=== PATIENT | male | born 1965 | race African-American/Black ===

== ENCOUNTER 2018-03-13 16:07 | Inpatient (IN) | payer OTHER, MEDICAID ==
[~2018-03-13] VITALS: Ht 182.9 cm; Wt 174.2 kg
[~2018-03-13 16:07] MED LIST: ACET-3161 PO; BENA10TA3 PO; D-ME473S8 PO; GEMF600T3 PO; HYDR25TA PO; IBUP-2029 PO; LORA10TA7 PO; METF500T4 PO; PROAIR HFA INH; TRIA15OI8 TP
[2018-03-13 16:49] LABS: BASOPHILS % 0.8 % (0.0-2.0); EOSINOPHILS % 2.2 % (0.0-5.0); HEMATOCRIT. 47.7 % (42.0-52.0); HEMOGLOBIN. 15.6 g/dL (14.0-18.0); LYMPHOCYTES % 30.6 % (20.0-50.0); MEAN CORPUSCULAR HEMOGLOBIN 31.3 pg (28.0-32.0); MEAN CORPUSCULAR VOLUME 95.7 fL (80.0-94.0); MEAN PLATELET VOLUME 9.1 fl (7.4-10.4); MONOCYTES % 10.3 % (2.0-8.0); NEUTROPHILS % 56.1 % (40.0-76.0); PLATELET 210 x1000/uL (130-400); RED BLOOD CELL COUNT 4.98 mill/uL (4.7-6.1)
[2018-03-13 16:54] LABS: CHLORIDE 102 mEq/L (98-107)
[2018-03-13 16:57] LABS: INR 1.1; PARTIAL THROMBOPLASTIN TIME 29.6 sec (23.4-31.0); PROTHROMBIN TIME 11.2 sec (9.4-11.6)
[2018-03-13] MEDS ORDERED: NITROGLYCERIN OINT 1GM/INCH UDPKT TD SCH (20:30)
[2018-03-13] MEDS ORDERED: METHYLPREDNISOLONE SOD SUCC 125 MG/2 ML VIAL IV ONE (20:30)
[2018-03-13] MEDS ORDERED: ASPIRIN 325MG EC TABLET PO SCH (20:30)
[2018-03-13] MEDS ORDERED: IPRATROPIUM/ALBUTEROL 0.5-3(2.5)MG/3ML NEB HHN ONE (20:30)
[2018-03-13] MEDS ORDERED: MORPHINE SULFATE 4 MG/ML CPJ (NOT FOR IM USE) IV SCH (20:30)
[2018-03-14] VITALS (7 sets, daily range): BP systolic 114–152; BP diastolic 63–88
[2018-03-14] MEDS ORDERED: ALBU2.5V13 IH (03:08)
[2018-03-14] MEDS ORDERED: BENZ2TAB7 PO (03:08)
[2018-03-14] MEDS ORDERED: HALO10TA13 PO (03:08)
[2018-03-14] MEDS ORDERED: AMLO5TAB4 PO (03:08)
[2018-03-14] MEDS ORDERED: FLUT16SP15 NS (03:08)
[2018-03-14] MEDS ORDERED: ACET250T3 PO (03:08)
[2018-03-14] MEDS ORDERED: ONDANSETRON HCL 4MG/2ML VIAL IV PRN (03:15)
[2018-03-14] MEDS ORDERED: DEXTROSE 50% WATER 50ML SYRINGE IV PRN (03:15)
[2018-03-14] MEDS ORDERED: HYDROCODONE/ACETAMINOPHEN 5/325MG TABLET PO PRN (03:15)
[2018-03-14] MEDS: BLOOD SUGAR DIAGNOSTIC STRIP TEST SCH ×4 (07:20→20:32)
[2018-03-14] MEDS: INSULIN LISPRO 100 UNITS/ML SUBCUT SCH ×4 (07:50→20:32)
[2018-03-14] MEDS ORDERED: BENAZEPRIL 10MG TABLET PO SCH (09:00)
[2018-03-14] MEDS: BENZTROPINE MESYLATE 2MG TABLET PO SCH ×2 (09:00→17:00)
[2018-03-14] MEDS ORDERED: ACETAZOLAMIDE 250MG TABLET PO SCH (09:00)
[2018-03-14] MEDS: HALOPERIDOL 5MG TABLET PO SCH ×2 (09:00→20:33)
[2018-03-14] MEDS: GEMFIBROZIL 600MG TABLET PO SCH ×2 (09:34→17:57)
[2018-03-14] MEDS: ASPIRIN 81MG TABLET PO SCH (09:34)
[2018-03-14] MEDS: HYDROCHLOROTHIAZIDE 25MG TABLET PO SCH (09:38)
[2018-03-14] MEDS: AMLODIPINE 5MG TABLET PO SCH (10:13)
[2018-03-14 10:34] LABS: BASOPHILS % 0.1 % (0.0-2.0); HEMATOCRIT. 47.6 % (42.0-52.0); LYMPHOCYTES % 12.4 % (20.0-50.0); MEAN CORPUSCULAR VOLUME 95.6 fL (80.0-94.0); MEAN PLATELET VOLUME 9.6 fl (7.4-10.4); MONOCYTES % 3.6 % (2.0-8.0); NEUTROPHILS % 83.9 % (40.0-76.0); PLATELET 242 x1000/uL (130-400); RED BLOOD CELL COUNT 4.98 mill/uL (4.7-6.1); RED CELL DISTRIBUTION WIDTH 13.9 % (11.6-14.6)
[2018-03-14 11:44] LABS: CHLORIDE 100 mEq/L (98-107)
[2018-03-14] MEDS ORDERED: PNEUMOCOCCAL 23-VAL P-SAC VAC 0.5 ML IM ONE (12:00)
[2018-03-14 12:05] LABS: LDL CHOLESTEROL 155 mg/dL (5-100)
[2018-03-14 12:07] LABS: HDL CHOLESTEROL 52 mg/dL (40-59)
[2018-03-14] MEDS: ACETAZOLAMIDE 250MG TABLET PO SCH ×2 (13:26→20:32)
[2018-03-14 13:27] LABS: CREATINE KINASE 91 IU/L (39-308)
[2018-03-14 16:16] LABS: CREATINE KINASE 84 IU/L (39-308)
[2018-03-14 16:20] LABS: CREATINE KINASE MB FRACTION 0.9 ng/mL (0.5-3.6)
[2018-03-14 19:51] LABS: *AMPHETAMINES SCREEN URINE NEGATIVE (NEGATIVE); *BARBITURATES SCREEN URINE NEGATIVE (NEGATIVE)
[2018-03-14 19:52] LABS: *BENZODIAZEPINES SCREEN URINE NEGATIVE (NEGATIVE); *COCAINE SCREEN URINE NEGATIVE (NEGATIVE); CANNABINOID URINE SCREEN NEGATIVE (NEGATIVE); METHADONE URINE SCREEN NEGATIVE (NEGATIVE); OPIATES URINE SCREEN NEGATIVE (NEGATIVE); PHENCYCLIDINE URINE SCREEN NEGATIVE (NEGATIVE)
[2018-03-14] MEDS: PREDNISONE 20MG TABLET PO SCH (20:31)
[2018-03-14 23:14] LABS: CREATINE KINASE 80 IU/L (39-308)
[2018-03-14 23:15] LABS: CREATINE KINASE MB FRACTION 0.9 ng/mL (0.5-3.6)
[2018-03-15] VITALS: BP 141/76
[2018-03-15 04:00] VITALS: BP 140/84
[2018-03-15] MEDS: BLOOD SUGAR DIAGNOSTIC STRIP TEST SCH ×4 (06:20→20:53)
[2018-03-15 07:25] VITALS: BP 138/80
[2018-03-15] MEDS: INSULIN LISPRO 100 UNITS/ML SUBCUT SCH ×4 (07:50→20:55)
[2018-03-15] MEDS: HALOPERIDOL 5MG TABLET PO SCH ×2 (09:00→20:55)
[2018-03-15] MEDS: BENZTROPINE MESYLATE 2MG TABLET PO SCH ×2 (09:00→17:00)
[2018-03-15] MEDS: ASPIRIN 81MG TABLET PO SCH (09:48)
[2018-03-15] MEDS: PREDNISONE 20MG TABLET PO SCH (09:50)
[2018-03-15] MEDS: ACETAZOLAMIDE 250MG TABLET PO SCH ×2 (09:50→20:52)
[2018-03-15] MEDS: GEMFIBROZIL 600MG TABLET PO SCH ×2 (09:50→17:42)
[2018-03-15] MEDS: AMLODIPINE 5MG TABLET PO SCH ×2 (09:51→20:53)
[2018-03-15] MEDS: HYDROCHLOROTHIAZIDE 25MG TABLET PO SCH (09:52)
[2018-03-15 12:28] VITALS: BP 152/92
[2018-03-15 15:25] VITALS: BP 138/83
[2018-03-15] MEDS: BENAZEPRIL 10MG TABLET PO SCH (17:42)
[2018-03-15 20:09] VITALS: BP 126/77
[2018-03-16] VITALS (25 sets, daily range): BP systolic 101–201; BP diastolic 54–111
[2018-03-16] MEDS: BLOOD SUGAR DIAGNOSTIC STRIP TEST SCH ×2 (06:35→20:40)
[2018-03-16] MEDS: INSULIN LISPRO 100 UNITS/ML SUBCUT SCH ×2 (07:50→20:40)
[2018-03-16] MEDS: HALOPERIDOL 5MG TABLET PO SCH ×2 (09:00→20:20)
[2018-03-16] MEDS: BENZTROPINE MESYLATE 2MG TABLET PO SCH ×2 (09:00→18:18)
[2018-03-16] MEDS: HYDROCHLOROTHIAZIDE 25MG TABLET PO SCH (09:12)
[2018-03-16] MEDS: PREDNISONE 20MG TABLET PO SCH (09:12)
[2018-03-16] MEDS: GEMFIBROZIL 600MG TABLET PO SCH ×2 (09:12→18:18)
[2018-03-16] MEDS: ASPIRIN 81MG TABLET PO SCH (09:12)
[2018-03-16] MEDS: BENAZEPRIL 10MG TABLET PO SCH ×2 (09:13→17:00)
[2018-03-16] MEDS: AMLODIPINE 5MG TABLET PO SCH ×2 (09:13→20:19)
[2018-03-16] MEDS: ACETAZOLAMIDE 250MG TABLET PO SCH (09:23)
[2018-03-16] MEDS ORDERED: ETOMIDATE 2MG/ML 10ML VIAL IV ONE (13:01)
[2018-03-16] MEDS ORDERED: SUCCINYLCHOLINE CHLORIDE 200MG/10ML VIAL IV ONE (13:01)
[2018-03-16] MEDS ORDERED: ATROPINE SULFATE 1MG/10ML SYR ONE (13:01)
[2018-03-16 13:49] LABS: BG BASE EXCESS 5.6 mmol/L (-2.0-2.0); BG CARBOXYHEMOGLOBIN 1.7 % (0.5-1.5); BG DEOXYHEMOGLOBIN 8.5 % (0.0-5.0); BG FRACTION INSPIRED OXYGEN 32; BG HCO3 ACT 37.5 mmol/L (22.0-26.0); BG METHEMOGLOBIN 0.3 % (0.0-1.5); BG OXYGEN SATURATION 91.3 % (92.0-98.5); BG OXYHEMOGLOBIN 89.5 % (94.0-97.0); BG PCO2 90.5 mmHg (35.0-45.0); BG PH 7.235 (7.350-7.450); BG PO2 65.2 mmHg (75.0-100.0); BG SAMPLE SITE RIGHT RADIAL; BG TOTAL HEMOGLOBIN 17.3 g/dL (12.0-18.0); BG VENT MODE NASAL CANNULA
[2018-03-16] MEDS ORDERED: LORAZEPAM 2MG/ML CPJ IV NR (15:30)
[2018-03-16 16:09] LABS: HEMATOCRIT 49.4 % (42.0-52.0); HEMOGLOBIN 15.8 g/dL (14.0-18.0); MEAN CORPUSCULAR HEMOGLOBIN 31.4 pg (28.0-32.0); MEAN CORPUSCULAR VOLUME 98.2 fL (80.0-94.0); PLATELET 199 x1000/uL (130-400); RED BLOOD CELL COUNT 5.03 mill/uL (4.7-6.1); RED CELL DISTRIBUTION WIDTH 14.1 % (11.6-14.6)
[2018-03-16 16:30] LABS: CHLORIDE 99 mEq/L (98-107)
[2018-03-16 16:49] LABS: BG BASE EXCESS 9.1 mmol/L (-2.0-2.0); BG BILEVEL POS AIRWAY PRESSURE 16/5; BG CARBOXYHEMOGLOBIN 1.7 % (0.5-1.5); BG DEOXYHEMOGLOBIN 12.7 % (0.0-5.0); BG FRACTION INSPIRED OXYGEN 30; BG HCO3 ACT 44.1 mmol/L (22.0-26.0); BG METHEMOGLOBIN 0.3 % (0.0-1.5); BG OXYHEMOGLOBIN 85.3 % (94.0-97.0); BG PCO2 120.8 mmHg (35.0-45.0); BG PO2 59.2 mmHg (75.0-100.0); BG SAMPLE SITE RIGHT RADIAL; BG TOTAL HEMOGLOBIN 17.6 g/dL (12.0-18.0); BG VENT MODE MASK - BIPAP
[2018-03-16] MEDS ORDERED: PROPOFOL 200MG/20ML VIAL IV ONE (17:15)
[2018-03-16 18:34] LABS: BG BASE EXCESS 7.3 mmol/L (-2.0-2.0); BG CARBOXYHEMOGLOBIN 1.5 % (0.5-1.5); BG DEOXYHEMOGLOBIN 0.2 % (0.0-5.0); BG FRACTION INSPIRED OXYGEN 100; BG HCO3 ACT 37.5 mmol/L (22.0-26.0); BG METHEMOGLOBIN 0.4 % (0.0-1.5); BG OXYGEN SATURATION 99.8 % (92.0-98.5); BG OXYHEMOGLOBIN 97.9 % (94.0-97.0); BG PCO2 78.7 mmHg (35.0-45.0); BG PH 7.296 (7.350-7.450); BG PO2 350.5 mmHg (75.0-100.0); BG SAMPLE SITE LEFT RADIAL; BG TIDAL VOLUME(mL) 600 mL; BG TOTAL HEMOGLOBIN 16.4 g/dL (12.0-18.0); BG VENT MODE VENT - A/C; BG VENT RATE 18 set
[2018-03-16] MEDS ORDERED: METHYLPREDNISOLONE SOD SUCC 125 MG/2 ML VIAL IV NR (19:00)
[2018-03-16] MEDS ORDERED: DOPAMINE 400MG PREMIX 250 ML IV PRN ×2 (19:00→19:57)
[2018-03-16] MEDS ORDERED: PROPOFOL 10MG/ML 100ML 100 ML IV PRN (19:15)
[2018-03-16] MEDS: PROPOFOL 10MG/ML 100ML 100 ML IV NR ×2 (19:37→23:54)
[2018-03-16] MEDS: IPRATROPIUM/ALBUTEROL 0.5-3(2.5)MG/3ML NEB HHN SCH (20:32)
[2018-03-16] MEDS: LEVOFLOXACIN 500MG PREMIX 100 ML IV SCH (21:18)
[2018-03-16] MEDS: METHYLPREDNISOLONE SOD SUCC 125 MG/2 ML VIAL IV SCH (21:41)
[2018-03-17] VITALS (95 sets, daily range): BP systolic 96–146; BP diastolic 36–89
[2018-03-17] MEDS: IPRATROPIUM/ALBUTEROL 0.5-3(2.5)MG/3ML NEB HHN SCH ×6 (00:26→21:30)
[2018-03-17] MEDS: PROPOFOL 10MG/ML 100ML 100 ML IV PRN ×6 (03:35→22:14)
[2018-03-17] MEDS: BLOOD SUGAR DIAGNOSTIC STRIP TEST SCH ×4 (05:40→21:12)
[2018-03-17] MEDS: METHYLPREDNISOLONE SOD SUCC 125 MG/2 ML VIAL IV SCH ×3 (05:42→21:12)
[2018-03-17 06:01] LABS: CHLORIDE 100 mEq/L (98-107)
[2018-03-17 06:02] LABS: HEMATOCRIT. 48.2 % (42.0-52.0); HEMOGLOBIN. 15.9 g/dL (14.0-18.0); LYMPHOCYTES % 11.2 % (20.0-50.0); MEAN CORPUSCULAR HEMOGLOBIN 31.7 pg (28.0-32.0); MEAN CORPUSCULAR VOLUME 95.9 fL (80.0-94.0); MEAN PLATELET VOLUME 9.9 fl (7.4-10.4); MONOCYTES % 2.1 % (2.0-8.0); NEUTROPHILS % 86.7 % (40.0-76.0); PLATELET 235 x1000/uL (130-400); RED BLOOD CELL COUNT 5.02 mill/uL (4.7-6.1); RED CELL DISTRIBUTION WIDTH 13.7 % (11.6-14.6)
[2018-03-17] MEDS: INSULIN LISPRO 100 UNITS/ML SUBCUT SCH ×4 (06:03→21:00)
[2018-03-17] MEDS ORDERED: BENAZEPRIL 10MG TABLET PO SCH (09:00)
[2018-03-17] MEDS ORDERED: GEMFIBROZIL 600MG TABLET PO SCH (09:00)
[2018-03-17] MEDS: BENZTROPINE MESYLATE 2MG TABLET PO SCH ×2 (09:00→15:15)
[2018-03-17] MEDS ORDERED: AMLODIPINE 5MG TABLET PO SCH (09:00)
[2018-03-17] MEDS ORDERED: BENZTROPINE MESYLATE 2MG TABLET PO SCH (09:00)
[2018-03-17] MEDS ORDERED: HALOPERIDOL 5MG TABLET PO SCH (09:00)
[2018-03-17 09:08] LABS: BG BASE EXCESS 4.9 mmol/L (-2.0-2.0); BG CARBOXYHEMOGLOBIN 1.3 % (0.5-1.5); BG DEOXYHEMOGLOBIN 4.8 % (0.0-5.0); BG FRACTION INSPIRED OXYGEN 70; BG HCO3 ACT 30.2 mmol/L (22.0-26.0); BG METHEMOGLOBIN 0.3 % (0.0-1.5); BG OXYGEN SATURATION 95.1 % (92.0-98.5); BG OXYHEMOGLOBIN 93.6 % (94.0-97.0); BG PCO2 46.4 mmHg (35.0-45.0); BG PH 7.432 (7.350-7.450); BG PO2 70.9 mmHg (75.0-100.0); BG SAMPLE SITE RIGHT BRACHIAL; BG TIDAL VOLUME(mL) 600 mL; BG TOTAL HEMOGLOBIN 16.8 g/dL (12.0-18.0); BG VENT MODE VENT - A/C; BG VENT RATE 18 set
[2018-03-17] MEDS: AMLODIPINE 5MG TABLET PO SCH ×2 (11:16→21:13)
[2018-03-17] MEDS: ACETAZOLAMIDE 250MG TABLET PO SCH ×2 (11:16→21:14)
[2018-03-17] MEDS: GEMFIBROZIL 600MG TABLET PO SCH ×2 (11:16→18:37)
[2018-03-17] MEDS: HYDROCHLOROTHIAZIDE 25MG TABLET PO SCH (11:16)
[2018-03-17] MEDS: BENAZEPRIL 10MG TABLET PO SCH ×2 (11:17→18:37)
[2018-03-17] MEDS: ASPIRIN 81MG TABLET PO SCH (11:18)
[2018-03-17] MEDS ORDERED: SODIUM BICARBONATE 4% (2.4MEQ) 5ML VIAL IV ONE (14:14)
[2018-03-17] MEDS ORDERED: LIDOCAINE HCL/PF 1% 10 MG/ML 5ML VIAL ONE (14:14)
[2018-03-17] MEDS: LEVOFLOXACIN 500MG PREMIX 100 ML IV SCH (21:14)
[2018-03-18] VITALS (89 sets, daily range): BP systolic 47–145; BP diastolic 23–94
[2018-03-18] MEDS: IPRATROPIUM/ALBUTEROL 0.5-3(2.5)MG/3ML NEB HHN SCH ×7 (00:57→23:54)
[2018-03-18] MEDS: PROPOFOL 10MG/ML 100ML 100 ML IV PRN ×7 (02:00→21:10)
[2018-03-18] MEDS: INSULIN LISPRO 100 UNITS/ML SUBCUT SCH ×4 (05:42→21:00)
[2018-03-18] MEDS: BLOOD SUGAR DIAGNOSTIC STRIP TEST SCH ×4 (05:42→21:42)
[2018-03-18] MEDS: METHYLPREDNISOLONE SOD SUCC 125 MG/2 ML VIAL IV SCH ×3 (05:43→21:18)
[2018-03-18 05:48] LABS: BASOPHILS % 0.1 % (0.0-2.0); HEMATOCRIT. 48.1 % (42.0-52.0); HEMOGLOBIN. 15.9 g/dL (14.0-18.0); LYMPHOCYTES % 7.8 % (20.0-50.0); MEAN CORPUSCULAR HEMOGLOBIN 31.5 pg (28.0-32.0); MEAN CORPUSCULAR VOLUME 95.2 fL (80.0-94.0); MEAN PLATELET VOLUME 10.6 fl (7.4-10.4); MONOCYTES % 5.3 % (2.0-8.0); NEUTROPHILS % 86.8 % (40.0-76.0); PLATELET 223 x1000/uL (130-400); RED BLOOD CELL COUNT 5.06 mill/uL (4.7-6.1)
[2018-03-18 06:09] LABS: CHLORIDE 99 mEq/L (98-107)
[2018-03-18] MEDS: GEMFIBROZIL 600MG TABLET PO SCH ×2 (08:50→17:14)
[2018-03-18] MEDS: BENZTROPINE MESYLATE 2MG TABLET PO SCH ×2 (08:50→17:14)
[2018-03-18] MEDS: ASPIRIN 81MG TABLET PO SCH (08:50)
[2018-03-18] MEDS: AMLODIPINE 5MG TABLET PO SCH ×2 (08:50→21:19)
[2018-03-18] MEDS: BENAZEPRIL 10MG TABLET PO SCH ×2 (08:51→17:14)
[2018-03-18] MEDS: ACETAZOLAMIDE 250MG TABLET PO SCH ×2 (08:59→21:18)
[2018-03-18] MEDS: HYDROCHLOROTHIAZIDE 25MG TABLET PO SCH (09:17)
[2018-03-18 09:31] LABS: BG BASE EXCESS 4.4 mmol/L (-2.0-2.0); BG CARBOXYHEMOGLOBIN 0.7 % (0.5-1.5); BG DEOXYHEMOGLOBIN 4.5 % (0.0-5.0); BG FRACTION INSPIRED OXYGEN 70; BG HCO3 ACT 30.4 mmol/L (22.0-26.0); BG METHEMOGLOBIN 0.2 % (0.0-1.5); BG OXYGEN SATURATION 95.5 % (92.0-98.5); BG OXYHEMOGLOBIN 94.6 % (94.0-97.0); BG PH 7.402 (7.350-7.450); BG PO2 79.5 mmHg (75.0-100.0); BG SAMPLE SITE RIGHT RADIAL; BG TIDAL VOLUME(mL) 600 mL; BG TOTAL HEMOGLOBIN 16.3 g/dL (12.0-18.0); BG VENT MODE VENT - A/C; BG VENT RATE 18 set
[2018-03-18] MEDS: MIDAZOLAM HCL 100 MG in DEXT 5% WATER 80 ML IV PRN (13:06)
[2018-03-18] MEDS: LEVOFLOXACIN 500MG PREMIX 100 ML IV SCH (21:19)
[2018-03-19] VITALS (81 sets, daily range): BP systolic 93–155; BP diastolic 50–102
[2018-03-19] MEDS: MIDAZOLAM HCL 100 MG in DEXT 5% WATER 80 ML IV PRN ×3 (00:52→22:11)
[2018-03-19] MEDS: IPRATROPIUM/ALBUTEROL 0.5-3(2.5)MG/3ML NEB HHN SCH ×5 (03:51→20:57)
[2018-03-19] MEDS: METHYLPREDNISOLONE SOD SUCC 125 MG/2 ML VIAL IV SCH ×3 (05:16→21:50)
[2018-03-19 05:33] LABS: HEMATOCRIT. 47.6 % (42.0-52.0); HEMOGLOBIN. 15.9 g/dL (14.0-18.0); MEAN CORPUSCULAR HEMOGLOBIN 31.7 pg (28.0-32.0); MEAN CORPUSCULAR VOLUME 94.9 fL (80.0-94.0); MEAN PLATELET VOLUME 10.5 fl (7.4-10.4); PLATELET 217 x1000/uL (130-400); RED BLOOD CELL COUNT 5.02 mill/uL (4.7-6.1); RED CELL DISTRIBUTION WIDTH 13.9 % (11.6-14.6)
[2018-03-19 05:47] LABS: CHLORIDE 100 mEq/L (98-107)
[2018-03-19] MEDS: INSULIN LISPRO 100 UNITS/ML SUBCUT SCH ×4 (06:46→21:55)
[2018-03-19] MEDS: BLOOD SUGAR DIAGNOSTIC STRIP TEST SCH ×4 (06:46→21:55)
[2018-03-19] MEDS: ENOXAPARIN 40MG/0.4ML SYR SUBCUT SCH ×2 (09:00→21:52)
[2018-03-19] MEDS: ACETAZOLAMIDE 250MG TABLET PO SCH ×2 (09:34→21:58)
[2018-03-19] MEDS: BENZTROPINE MESYLATE 2MG TABLET PO SCH ×2 (09:34→17:41)
[2018-03-19] MEDS: GEMFIBROZIL 600MG TABLET PO SCH ×2 (09:34→17:41)
[2018-03-19] MEDS: ASPIRIN 81MG TABLET PO SCH (09:34)
[2018-03-19] MEDS: AMLODIPINE 5MG TABLET PO SCH ×2 (09:35→21:52)
[2018-03-19] MEDS: BENAZEPRIL 10MG TABLET PO SCH ×2 (09:35→17:41)
[2018-03-19 09:41] LABS: BG BASE EXCESS 5.7 mmol/L (-2.0-2.0); BG CARBOXYHEMOGLOBIN 0.8 % (0.5-1.5); BG DEOXYHEMOGLOBIN 9.1 % (0.0-5.0); BG HCO3 ACT 31.2 mmol/L (22.0-26.0); BG OXYGEN SATURATION 90.8 % (92.0-98.5); BG OXYHEMOGLOBIN 90.1 % (94.0-97.0); BG PCO2 47.9 mmHg (35.0-45.0); BG PH 7.432 (7.350-7.450); BG PO2 60.3 mmHg (75.0-100.0); BG SAMPLE SITE RIGHT RADIAL; BG TIDAL VOLUME(mL) 600 mL; BG TOTAL HEMOGLOBIN 16.7 g/dL (12.0-18.0); BG VENT MODE VENT - A/C; BG VENT RATE 18 set
[2018-03-19 12:29] LABS: PLATELET ESTIMATE NORMAL
[2018-03-19] MEDS: LEVOFLOXACIN 500MG PREMIX 100 ML IV SCH (21:51)
[2018-03-20] VITALS (97 sets, daily range): BP systolic 95–153; BP diastolic 46–116
[2018-03-20] MEDS: IPRATROPIUM/ALBUTEROL 0.5-3(2.5)MG/3ML NEB HHN SCH ×6 (00:59→19:50)
[2018-03-20 05:58] LABS: CHLORIDE 100 mEq/L (98-107)
[2018-03-20] MEDS: BLOOD SUGAR DIAGNOSTIC STRIP TEST SCH ×4 (06:13→21:29)
[2018-03-20] MEDS: INSULIN LISPRO 100 UNITS/ML SUBCUT SCH ×4 (06:13→21:29)
[2018-03-20] MEDS: METHYLPREDNISOLONE SOD SUCC 125 MG/2 ML VIAL IV SCH ×3 (06:13→21:55)
[2018-03-20] MEDS: AMLODIPINE 5MG TABLET PO SCH ×2 (09:00→21:54)
[2018-03-20 09:22] LABS: BG BASE EXCESS 3.3 mmol/L (-2.0-2.0); BG CARBOXYHEMOGLOBIN 0.9 % (0.5-1.5); BG DEOXYHEMOGLOBIN 9.1 % (0.0-5.0); BG FRACTION INSPIRED OXYGEN 80; BG HCO3 ACT 30.5 mmol/L (22.0-26.0); BG METHEMOGLOBIN 0.3 % (0.0-1.5); BG OXYGEN SATURATION 90.8 % (92.0-98.5); BG OXYHEMOGLOBIN 89.7 % (94.0-97.0); BG PCO2 55.7 mmHg (35.0-45.0); BG PH 7.356 (7.350-7.450); BG PO2 64.9 mmHg (75.0-100.0); BG SAMPLE SITE RIGHT RADIAL; BG TIDAL VOLUME(mL) 600 mL; BG TOTAL HEMOGLOBIN 16.7 g/dL (12.0-18.0); BG VENT MODE VENT - A/C; BG VENT RATE 18 set
[2018-03-20] MEDS: ACETAZOLAMIDE 250MG TABLET PO SCH ×2 (09:59→21:54)
[2018-03-20] MEDS: GEMFIBROZIL 600MG TABLET PO SCH ×2 (10:00→20:05)
[2018-03-20] MEDS: ASPIRIN 81MG TABLET PO SCH (10:00)
[2018-03-20] MEDS: BENZTROPINE MESYLATE 2MG TABLET PO SCH ×2 (10:02→18:06)
[2018-03-20] MEDS: ENOXAPARIN 40MG/0.4ML SYR SUBCUT SCH ×2 (10:03→21:55)
[2018-03-20] MEDS: BENAZEPRIL 10MG TABLET PO SCH ×2 (10:04→18:07)
[2018-03-20] MEDS: MIDAZOLAM HCL 100 MG in DEXT 5% WATER 80 ML IV PRN (10:08)
[2018-03-20] MEDS: SODIUM CHLORIDE 0.9% 1,000 ML IV SCH (11:13)
[2018-03-20] MEDS: PANTOPRAZOLE SODIUM 40 MG/VIAL IV SCH (11:14)
[2018-03-20] MEDS ORDERED: LEVOFLOXACIN 500MG TABLET PO SCH (21:00)
[2018-03-20] MEDS: LEVOFLOXACIN 500MG PREMIX 100 ML IV SCH (21:56)
[2018-03-21] VITALS (92 sets, daily range): BP systolic 99–154; BP diastolic 34–94
[2018-03-21] MEDS: IPRATROPIUM/ALBUTEROL 0.5-3(2.5)MG/3ML NEB HHN SCH ×7 (00:25→23:40)
[2018-03-21] MEDS: ACETYLCYSTEINE 100MG/ML 10% VIAL 4ML INH SCH ×3 (00:26→23:40)
[2018-03-21 05:29] LABS: HEMATOCRIT. 46.5 % (42.0-52.0); HEMOGLOBIN. 15.3 g/dL (14.0-18.0); LYMPHOCYTES % 9.2 % (20.0-50.0); MEAN CORPUSCULAR HEMOGLOBIN 31.8 pg (28.0-32.0); MEAN CORPUSCULAR VOLUME 96.2 fL (80.0-94.0); MONOCYTES % 11.9 % (2.0-8.0); NEUTROPHILS % 78.9 % (40.0-76.0); PLATELET 190 x1000/uL (130-400); RED BLOOD CELL COUNT 4.83 mill/uL (4.7-6.1); RED CELL DISTRIBUTION WIDTH 13.9 % (11.6-14.6)
[2018-03-21 05:46] LABS: CHLORIDE 103 mEq/L (98-107)
[2018-03-21] MEDS: INSULIN LISPRO 100 UNITS/ML SUBCUT SCH ×4 (06:12→20:58)
[2018-03-21] MEDS: BLOOD SUGAR DIAGNOSTIC STRIP TEST SCH ×4 (06:12→20:58)
[2018-03-21] MEDS: METHYLPREDNISOLONE SOD SUCC 125 MG/2 ML VIAL IV SCH ×3 (06:15→21:00)
[2018-03-21] MEDS: SODIUM CHLORIDE 0.9% 1,000 ML IV SCH (06:18)
[2018-03-21 07:31] LABS: BG BASE EXCESS 2.2 mmol/L (-2.0-2.0); BG CARBOXYHEMOGLOBIN 0.6 % (0.5-1.5); BG DEOXYHEMOGLOBIN 3.9 % (0.0-5.0); BG FRACTION INSPIRED OXYGEN 80; BG HCO3 ACT 27.5 mmol/L (22.0-26.0); BG METHEMOGLOBIN 0.2 % (0.0-1.5); BG OXYGEN SATURATION 96.1 % (92.0-98.5); BG OXYHEMOGLOBIN 95.3 % (94.0-97.0); BG PCO2 44.9 mmHg (35.0-45.0); BG PH 7.405 (7.350-7.450); BG PO2 93.5 mmHg (75.0-100.0); BG SAMPLE SITE RIGHT RADIAL; BG TIDAL VOLUME(mL) 600 mL; BG TOTAL HEMOGLOBIN 16.2 g/dL (12.0-18.0); BG VENT MODE VENT - A/C; BG VENT RATE 18 set
[2018-03-21] MEDS: AMLODIPINE 5MG TABLET PO SCH ×2 (09:00→20:59)
[2018-03-21] MEDS: PANTOPRAZOLE SODIUM 40 MG/VIAL IV SCH (09:07)
[2018-03-21] MEDS: ACETAZOLAMIDE 250MG TABLET PO SCH (09:07)
[2018-03-21] MEDS: ASPIRIN 81MG TABLET PO SCH (09:07)
[2018-03-21] MEDS: GEMFIBROZIL 600MG TABLET PO SCH ×2 (09:07→18:10)
[2018-03-21] MEDS: BENZTROPINE MESYLATE 2MG TABLET PO SCH ×2 (09:07→18:11)
[2018-03-21] MEDS: BENAZEPRIL 10MG TABLET PO SCH ×2 (09:08→18:11)
[2018-03-21] MEDS: ENOXAPARIN 40MG/0.4ML SYR SUBCUT SCH ×2 (09:09→20:59)
[2018-03-21] MEDS: LEVOFLOXACIN 500MG PREMIX 100 ML IV SCH (21:00)
[2018-03-21] MEDS ORDERED: DIPHENHYDRAMINE 50MG/ML VIAL IV NR (21:45)
[2018-03-22] VITALS (60 sets, daily range): BP systolic 116–158; BP diastolic 59–101
[2018-03-22 00:11] LABS: CLARITY URINE CLEAR (CLEAR); COLOR URINE YELLOW (YELLOW); KETONES URINE NEGATIVE (NEGATIVE); LEUKOCYTE ESTERASE URINE NEGATIVE (NEGATIVE); NITRITE URINE NEGATIVE (NEGATIVE); OCCULT BLOOD URINE 3+ (NEGATIVE); PROTEIN URINE 2+ (NEGATIVE); SPECIFIC GRAVITY URINE 1.028 (1.005-1.030)
[2018-03-22] MEDS: IPRATROPIUM/ALBUTEROL 0.5-3(2.5)MG/3ML NEB HHN SCH ×5 (02:56→20:17)
[2018-03-22] MEDS: ACETAMINOPHEN 650MG/20.3ML UDC NG PRN ×2 (03:42→14:23)
[2018-03-22] MEDS: BLOOD SUGAR DIAGNOSTIC STRIP TEST SCH ×4 (05:36→21:00)
[2018-03-22] MEDS: METHYLPREDNISOLONE SOD SUCC 125 MG/2 ML VIAL IV SCH ×3 (05:42→21:16)
[2018-03-22] MEDS: INSULIN LISPRO 100 UNITS/ML SUBCUT SCH ×4 (05:44→21:00)
[2018-03-22 08:08] LABS: BG BASE EXCESS 1.5 mmol/L (-2.0-2.0); BG CARBOXYHEMOGLOBIN 1.1 % (0.5-1.5); BG FRACTION INSPIRED OXYGEN 65; BG HCO3 ACT 27.7 mmol/L (22.0-26.0); BG METHEMOGLOBIN 0.3 % (0.0-1.5); BG OXYGEN SATURATION 93.9 % (92.0-98.5); BG OXYHEMOGLOBIN 92.6 % (94.0-97.0); BG PO2 70.9 mmHg (75.0-100.0); BG PRESSURE SUPPORT 12; BG SAMPLE SITE RIGHT RADIAL; BG TIDAL VOLUME(mL) 600 mL; BG TOTAL HEMOGLOBIN 16.5 g/dL (12.0-18.0); BG VENT MODE VENT - SIMV; BG VENT RATE 18 set
[2018-03-22] MEDS: ACETYLCYSTEINE 100MG/ML 10% VIAL 4ML INH SCH ×2 (09:32→11:38)
[2018-03-22] MEDS: PANTOPRAZOLE SODIUM 40 MG/VIAL IV SCH (09:35)
[2018-03-22] MEDS: AMLODIPINE 5MG TABLET PO SCH ×2 (09:35→21:16)
[2018-03-22] MEDS: GEMFIBROZIL 600MG TABLET PO SCH ×2 (09:35→17:41)
[2018-03-22] MEDS: BENZTROPINE MESYLATE 2MG TABLET PO SCH ×2 (09:35→17:41)
[2018-03-22] MEDS: BENAZEPRIL 10MG TABLET PO SCH ×2 (09:36→17:41)
[2018-03-22] MEDS: ASPIRIN 81MG TABLET PO SCH (09:36)
[2018-03-22] MEDS: ENOXAPARIN 40MG/0.4ML SYR SUBCUT SCH ×2 (09:36→21:16)
[2018-03-22] MEDS: LOSARTAN POTASSIUM 50 MG TABLET PO SCH (09:38)
[2018-03-22 13:00] LABS: HEMATOCRIT. 48.1 % (42.0-52.0); HEMOGLOBIN. 15.9 g/dL (14.0-18.0); MEAN CORPUSCULAR HEMOGLOBIN 31.8 pg (28.0-32.0); MEAN CORPUSCULAR VOLUME 96.1 fL (80.0-94.0); PLATELET 190 x1000/uL (130-400); RED CELL DISTRIBUTION WIDTH 13.8 % (11.6-14.6)
[2018-03-22 13:22] LABS: CHLORIDE 108 mEq/L (98-107)
[2018-03-22 16:30] LABS: PLATELET ESTIMATE NORMAL
[2018-03-22 17:56] LABS: BG BASE EXCESS -1.6 mmol/L (-2.0-2.0); BG CARBOXYHEMOGLOBIN 0.7 % (0.5-1.5); BG DEOXYHEMOGLOBIN 8.8 % (0.0-5.0); BG FRACTION INSPIRED OXYGEN 50; BG HCO3 ACT 28.4 mmol/L (22.0-26.0); BG METHEMOGLOBIN 0.4 % (0.0-1.5); BG OXYGEN SATURATION 91.1 % (92.0-98.5); BG OXYHEMOGLOBIN 90.1 % (94.0-97.0); BG PCO2 70.1 mmHg (35.0-45.0); BG PH 7.225 (7.350-7.450); BG PO2 71.6 mmHg (75.0-100.0); BG PRESSURE SUPPORT 8; BG SAMPLE SITE RIGHT RADIAL; BG TOTAL HEMOGLOBIN 17.5 g/dL (12.0-18.0); BG VENT MODE VENT - CPAP
[2018-03-23] VITALS (58 sets, daily range): BP systolic 95–164; BP diastolic 55–98
[2018-03-23] MEDS: IPRATROPIUM/ALBUTEROL 0.5-3(2.5)MG/3ML NEB HHN SCH ×5 (04:00→20:30)
[2018-03-23] MEDS: METHYLPREDNISOLONE SOD SUCC 125 MG/2 ML VIAL IV SCH ×4 (05:56→21:10)
[2018-03-23] MEDS: BLOOD SUGAR DIAGNOSTIC STRIP TEST SCH ×5 (05:56→20:41)
[2018-03-23 05:58] LABS: BASOPHILS % 0.1 % (0.0-2.0); HEMATOCRIT. 49.6 % (42.0-52.0); HEMOGLOBIN. 15.8 g/dL (14.0-18.0); LYMPHOCYTES % 9.2 % (20.0-50.0); MEAN CORPUSCULAR VOLUME 97.3 fL (80.0-94.0); MEAN PLATELET VOLUME 11.4 fl (7.4-10.4); MONOCYTES % 7.4 % (2.0-8.0); NEUTROPHILS % 83.3 % (40.0-76.0); PLATELET 192 x1000/uL (130-400); RED CELL DISTRIBUTION WIDTH 13.8 % (11.6-14.6)
[2018-03-23] MEDS: INSULIN LISPRO 100 UNITS/ML SUBCUT SCH ×4 (06:04→20:41)
[2018-03-23 06:25] LABS: CHLORIDE 109 mEq/L (98-107)
[2018-03-23] MEDS: AMLODIPINE 5MG TABLET PO SCH ×2 (08:40→20:42)
[2018-03-23] MEDS: GEMFIBROZIL 600MG TABLET PO SCH ×2 (08:40→17:28)
[2018-03-23] MEDS: BENAZEPRIL 10MG TABLET PO SCH ×2 (08:40→17:28)
[2018-03-23] MEDS: LOSARTAN POTASSIUM 50 MG TABLET PO SCH (08:40)
[2018-03-23] MEDS: PANTOPRAZOLE SODIUM 40 MG/VIAL IV SCH (08:40)
[2018-03-23] MEDS: BENZTROPINE MESYLATE 2MG TABLET PO SCH ×2 (08:40→17:29)
[2018-03-23] MEDS: ASPIRIN 81MG TABLET PO SCH (08:40)
[2018-03-23] MEDS: ENOXAPARIN 40MG/0.4ML SYR SUBCUT SCH ×2 (08:40→20:42)
[2018-03-23 09:13] LABS: BG BASE EXCESS 1.3 mmol/L (-2.0-2.0); BG CARBOXYHEMOGLOBIN 1.4 % (0.5-1.5); BG DEOXYHEMOGLOBIN 5.7 % (0.0-5.0); BG FRACTION INSPIRED OXYGEN 50; BG METHEMOGLOBIN 0.2 % (0.0-1.5); BG OXYGEN SATURATION 94.2 % (92.0-98.5); BG OXYHEMOGLOBIN 92.7 % (94.0-97.0); BG PCO2 57.3 mmHg (35.0-45.0); BG PH 7.322 (7.350-7.450); BG PO2 74.3 mmHg (75.0-100.0); BG SAMPLE SITE RIGHT RADIAL; BG TIDAL VOLUME(mL) 600 mL; BG TOTAL HEMOGLOBIN 16.6 g/dL (12.0-18.0); BG VENT MODE VENT - A/C; BG VENT RATE 16 set
[2018-03-23] MEDS ORDERED: NORMAL SALINE 0.9% 10 ML SYR ONE (15:18)
[2018-03-23] MEDS ORDERED: ETOMIDATE 2MG/ML 10ML VIAL IV ONE (15:18)
[2018-03-23] MEDS ORDERED: SUCCINYLCHOLINE CHLORIDE 200MG/10ML VIAL IV ONE (15:18)
[2018-03-23] MEDS: ACETYLCYSTEINE 100MG/ML 10% VIAL 4ML INH SCH (16:24)
[2018-03-24] VITALS (74 sets, daily range): BP systolic 101–174; BP diastolic 64–118
[2018-03-24] MEDS: IPRATROPIUM/ALBUTEROL 0.5-3(2.5)MG/3ML NEB HHN SCH ×6 (00:20→20:44)
[2018-03-24] MEDS: ACETYLCYSTEINE 100MG/ML 10% VIAL 4ML INH SCH ×3 (00:22→15:54)
[2018-03-24] MEDS: INSULIN LISPRO 100 UNITS/ML SUBCUT SCH ×4 (05:57→21:00)
[2018-03-24] MEDS: BLOOD SUGAR DIAGNOSTIC STRIP TEST SCH ×4 (05:57→21:31)
[2018-03-24] MEDS: METHYLPREDNISOLONE SOD SUCC 125 MG/2 ML VIAL IV SCH ×3 (05:57→21:36)
[2018-03-24 06:02] LABS: BASOPHILS % 0.1 % (0.0-2.0); EOSINOPHILS % 0.2 % (0.0-5.0); HEMATOCRIT. 48.4 % (42.0-52.0); MEAN CORPUSCULAR HEMOGLOBIN 31.7 pg (28.0-32.0); MEAN CORPUSCULAR VOLUME 96.3 fL (80.0-94.0); MEAN PLATELET VOLUME 11.2 fl (7.4-10.4); MONOCYTES % 11.7 % (2.0-8.0); PLATELET 198 x1000/uL (130-400); RED BLOOD CELL COUNT 5.03 mill/uL (4.7-6.1); RED CELL DISTRIBUTION WIDTH 13.9 % (11.6-14.6)
[2018-03-24 06:09] LABS: CHLORIDE 110 mEq/L (98-107)
[2018-03-24] MEDS: PANTOPRAZOLE SODIUM 40 MG/VIAL IV SCH (08:20)
[2018-03-24] MEDS: BENZTROPINE MESYLATE 2MG TABLET PO SCH ×2 (08:20→17:37)
[2018-03-24] MEDS: LOSARTAN POTASSIUM 50 MG TABLET PO SCH (08:20)
[2018-03-24] MEDS: GEMFIBROZIL 600MG TABLET PO SCH ×2 (08:20→17:37)
[2018-03-24] MEDS: ENOXAPARIN 40MG/0.4ML SYR SUBCUT SCH ×2 (08:20→21:42)
[2018-03-24] MEDS: ASPIRIN 81MG TABLET PO SCH (08:20)
[2018-03-24] MEDS: BENAZEPRIL 10MG TABLET PO SCH ×2 (08:21→17:37)
[2018-03-24] MEDS: AMLODIPINE 5MG TABLET PO SCH ×2 (08:22→21:46)
[2018-03-24 08:42] LABS: BG BASE EXCESS 1.1 mmol/L (-2.0-2.0); BG CARBOXYHEMOGLOBIN 0.8 % (0.5-1.5); BG DEOXYHEMOGLOBIN 5.2 % (0.0-5.0); BG FRACTION INSPIRED OXYGEN 50; BG HCO3 ACT 28.6 mmol/L (22.0-26.0); BG METHEMOGLOBIN 0.3 % (0.0-1.5); BG OXYHEMOGLOBIN 93.7 % (94.0-97.0); BG PCO2 56.3 mmHg (35.0-45.0); BG PH 7.324 (7.350-7.450); BG PO2 81.8 mmHg (75.0-100.0); BG SAMPLE SITE RIGHT RADIAL; BG TIDAL VOLUME(mL) 600 mL; BG VENT MODE VENT - A/C; BG VENT RATE 18 set
[2018-03-24 17:32] LABS: BG CARBOXYHEMOGLOBIN 0.9 % (0.5-1.5); BG DEOXYHEMOGLOBIN 6.4 % (0.0-5.0); BG FRACTION INSPIRED OXYGEN 50; BG HCO3 ACT 25.4 mmol/L (22.0-26.0); BG METHEMOGLOBIN 0.4 % (0.0-1.5); BG OXYGEN SATURATION 93.5 % (92.0-98.5); BG OXYHEMOGLOBIN 92.3 % (94.0-97.0); BG PCO2 52.8 mmHg (35.0-45.0); BG PO2 75.7 mmHg (75.0-100.0); BG PRESSURE SUPPORT 12; BG SAMPLE SITE LEFT RADIAL; BG TIDAL VOLUME(mL) 600 mL; BG TOTAL HEMOGLOBIN 16.7 g/dL (12.0-18.0); BG VENT MODE VENT - SIMV; BG VENT RATE 14 set
[2018-03-24] MEDS ORDERED: BISACODYL 10MG SUPP PR PRN (20:00)
[2018-03-25] VITALS (43 sets, daily range): BP systolic 86–181; BP diastolic 36–119
[2018-03-25] MEDS: IPRATROPIUM/ALBUTEROL 0.5-3(2.5)MG/3ML NEB HHN SCH ×5 (00:35→21:17)
[2018-03-25] MEDS: ACETYLCYSTEINE 100MG/ML 10% VIAL 4ML INH SCH ×3 (00:35→16:38)
[2018-03-25] MEDS: INSULIN LISPRO 100 UNITS/ML SUBCUT SCH ×4 (06:09→21:00)
[2018-03-25 06:10] LABS: BG BASE EXCESS -0.1 mmol/L (-2.0-2.0); BG CARBOXYHEMOGLOBIN 1.3 % (0.5-1.5); BG DEOXYHEMOGLOBIN 7.6 % (0.0-5.0); BG FRACTION INSPIRED OXYGEN 50; BG METHEMOGLOBIN 0.3 % (0.0-1.5); BG OXYGEN SATURATION 92.3 % (92.0-98.5); BG OXYHEMOGLOBIN 90.8 % (94.0-97.0); BG PCO2 79.9 mmHg (35.0-45.0); BG PH 7.206 (7.350-7.450); BG PO2 75.7 mmHg (75.0-100.0); BG PRESSURE SUPPORT 8; BG SAMPLE SITE RIGHT RADIAL; BG TOTAL HEMOGLOBIN 17.5 g/dL (12.0-18.0); BG VENT MODE VENT - CPAP
[2018-03-25] MEDS: BLOOD SUGAR DIAGNOSTIC STRIP TEST SCH ×4 (06:10→21:52)
[2018-03-25] MEDS: METHYLPREDNISOLONE SOD SUCC 125 MG/2 ML VIAL IV SCH ×3 (06:10→21:53)
[2018-03-25 06:36] LABS: CHLORIDE 110 mEq/L (98-107)
[2018-03-25] MEDS ORDERED: LORAZEPAM 2MG/ML CPJ IV NR (08:03)
[2018-03-25 09:03] LABS: BG BASE EXCESS -1.5 mmol/L (-2.0-2.0); BG CARBOXYHEMOGLOBIN 0.9 % (0.5-1.5); BG DEOXYHEMOGLOBIN 6.9 % (0.0-5.0); BG METHEMOGLOBIN 0.4 % (0.0-1.5); BG OXYHEMOGLOBIN 91.8 % (94.0-97.0); BG PCO2 74.1 mmHg (35.0-45.0); BG PO2 77.2 mmHg (75.0-100.0); BG SAMPLE SITE RIGHT RADIAL; BG TIDAL VOLUME(mL) 600 mL; BG TOTAL HEMOGLOBIN 17.3 g/dL (12.0-18.0); BG VENT MODE VENT - A/C; BG VENT RATE 16 set
[2018-03-25 09:12] LABS: HEMATOCRIT. 49.8 % (42.0-52.0); HEMOGLOBIN. 15.7 g/dL (14.0-18.0); MEAN CORPUSCULAR HEMOGLOBIN 30.8 pg (28.0-32.0); MEAN CORPUSCULAR VOLUME 97.3 fL (80.0-94.0); MEAN PLATELET VOLUME 11.7 fl (7.4-10.4); PLATELET 197 x1000/uL (130-400); RED BLOOD CELL COUNT 5.11 mill/uL (4.7-6.1)
[2018-03-25] MEDS: PANTOPRAZOLE SODIUM 40 MG/VIAL IV SCH (09:56)
[2018-03-25] MEDS: BENZTROPINE MESYLATE 2MG TABLET PO SCH ×2 (09:56→18:15)
[2018-03-25] MEDS: GEMFIBROZIL 600MG TABLET PO SCH ×2 (09:57→18:15)
[2018-03-25] MEDS: ASPIRIN 81MG TABLET PO SCH (09:57)
[2018-03-25] MEDS: ENOXAPARIN 40MG/0.4ML SYR SUBCUT SCH ×2 (09:58→21:54)
[2018-03-25] MEDS: BENAZEPRIL 10MG TABLET PO SCH (10:00)
[2018-03-25] MEDS: LOSARTAN POTASSIUM 50 MG TABLET PO SCH (10:00)
[2018-03-25] MEDS: AMLODIPINE 5MG TABLET PO SCH ×2 (10:01→21:55)
[2018-03-25] MEDS ORDERED: LIDOCAINE HCL/PF 1% 2ML VIAL ONE (13:29)
[2018-03-25 17:42] LABS: PLATELET ESTIMATE NORMAL
[2018-03-26] VITALS (48 sets, daily range): BP systolic 91–164; BP diastolic 24–107
[2018-03-26] MEDS: ACETYLCYSTEINE 100MG/ML 10% VIAL 4ML INH SCH (01:08)
[2018-03-26] MEDS: IPRATROPIUM/ALBUTEROL 0.5-3(2.5)MG/3ML NEB HHN SCH ×6 (01:08→20:21)
[2018-03-26 05:43] LABS: HEMATOCRIT. 49.1 % (42.0-52.0); HEMOGLOBIN. 16.1 g/dL (14.0-18.0); LYMPHOCYTES % 9.7 % (20.0-50.0); MEAN CORPUSCULAR HEMOGLOBIN 31.7 pg (28.0-32.0); MEAN CORPUSCULAR VOLUME 96.5 fL (80.0-94.0); MEAN PLATELET VOLUME 11.6 fl (7.4-10.4); MONOCYTES % 7.5 % (2.0-8.0); NEUTROPHILS % 82.8 % (40.0-76.0); PLATELET 208 x1000/uL (130-400); RED BLOOD CELL COUNT 5.09 mill/uL (4.7-6.1); RED CELL DISTRIBUTION WIDTH 13.9 % (11.6-14.6)
[2018-03-26 05:46] LABS: CHLORIDE 112 mEq/L (98-107)
[2018-03-26] MEDS: BLOOD SUGAR DIAGNOSTIC STRIP TEST SCH ×4 (06:21→21:53)
[2018-03-26] MEDS: METHYLPREDNISOLONE SOD SUCC 125 MG/2 ML VIAL IV SCH ×3 (06:21→21:51)
[2018-03-26] MEDS: INSULIN LISPRO 100 UNITS/ML SUBCUT SCH ×4 (06:22→21:00)
[2018-03-26] MEDS: PANTOPRAZOLE SODIUM 40 MG/VIAL IV SCH (08:03)
[2018-03-26] MEDS: GEMFIBROZIL 600MG TABLET PO SCH ×2 (08:04→16:02)
[2018-03-26] MEDS: ASPIRIN 81MG TABLET PO SCH (08:04)
[2018-03-26] MEDS: LOSARTAN POTASSIUM 50 MG TABLET PO SCH (08:04)
[2018-03-26] MEDS: BENZTROPINE MESYLATE 2MG TABLET PO SCH ×3 (08:04→16:09)
[2018-03-26] MEDS: AMLODIPINE 5MG TABLET PO SCH ×2 (08:04→21:00)
[2018-03-26] MEDS: BENAZEPRIL 10MG TABLET PO SCH ×2 (08:04→16:03)
[2018-03-26] MEDS: ENOXAPARIN 40MG/0.4ML SYR SUBCUT SCH ×2 (08:05→21:53)
[2018-03-26 08:55] LABS: BG BASE EXCESS 1.5 mmol/L (-2.0-2.0); BG CARBOXYHEMOGLOBIN 0.3 % (0.5-1.5); BG DEOXYHEMOGLOBIN 2.9 % (0.0-5.0); BG FRACTION INSPIRED OXYGEN 60; BG HCO3 ACT 29.4 mmol/L (22.0-26.0); BG METHEMOGLOBIN 0.3 % (0.0-1.5); BG OXYHEMOGLOBIN 96.5 % (94.0-97.0); BG PCO2 59.5 mmHg (35.0-45.0); BG PH 7.312 (7.350-7.450); BG PO2 98.4 mmHg (75.0-100.0); BG SAMPLE SITE RIGHT RADIAL; BG TIDAL VOLUME(mL) 600 mL; BG TOTAL HEMOGLOBIN 16.3 g/dL (12.0-18.0); BG VENT MODE VENT - A/C; BG VENT RATE 16 set
[2018-03-26] MEDS: ACETAMINOPHEN 650MG/20.3ML UDC NG PRN (16:06)
[2018-03-26 16:16] LABS: BG BASE EXCESS 0.8 mmol/L (-2.0-2.0); BG CARBOXYHEMOGLOBIN 0.8 % (0.5-1.5); BG DEOXYHEMOGLOBIN 3.7 % (0.0-5.0); BG FRACTION INSPIRED OXYGEN 60; BG HCO3 ACT 30.8 mmol/L (22.0-26.0); BG METHEMOGLOBIN 0.5 % (0.0-1.5); BG PCO2 72.4 mmHg (35.0-45.0); BG PH 7.247 (7.350-7.450); BG PO2 91.4 mmHg (75.0-100.0); BG PRESSURE SUPPORT 8; BG SAMPLE SITE RIGHT RADIAL; BG TOTAL HEMOGLOBIN 17.4 g/dL (12.0-18.0); BG VENT MODE VENT - CPAP
[2018-03-27] VITALS (45 sets, daily range): BP systolic 72–172; BP diastolic 26–118
[2018-03-27] MEDS: IPRATROPIUM/ALBUTEROL 0.5-3(2.5)MG/3ML NEB HHN SCH ×6 (00:08→20:45)
[2018-03-27 05:44] LABS: EOSINOPHILS % 0.1 % (0.0-5.0); HEMATOCRIT. 48.4 % (42.0-52.0); HEMOGLOBIN. 15.7 g/dL (14.0-18.0); LYMPHOCYTES % 16.2 % (20.0-50.0); MEAN CORPUSCULAR HEMOGLOBIN 31.7 pg (28.0-32.0); MEAN CORPUSCULAR VOLUME 97.6 fL (80.0-94.0); MEAN PLATELET VOLUME 11.3 fl (7.4-10.4); MONOCYTES % 10.6 % (2.0-8.0); NEUTROPHILS % 73.1 % (40.0-76.0); PLATELET 219 x1000/uL (130-400); RED BLOOD CELL COUNT 4.96 mill/uL (4.7-6.1); RED CELL DISTRIBUTION WIDTH 13.8 % (11.6-14.6)
[2018-03-27] MEDS: BLOOD SUGAR DIAGNOSTIC STRIP TEST SCH ×4 (06:01→21:50)
[2018-03-27] MEDS: INSULIN LISPRO 100 UNITS/ML SUBCUT SCH ×4 (06:01→21:50)
[2018-03-27] MEDS: METHYLPREDNISOLONE SOD SUCC 125 MG/2 ML VIAL IV SCH ×3 (06:02→22:01)
[2018-03-27 06:42] LABS: CHLORIDE 113 mEq/L (98-107)
[2018-03-27] MEDS ORDERED: SODIUM CHLORIDE 0.45% 1,000 ML IV ONE (07:45)
[2018-03-27] MEDS: LOSARTAN POTASSIUM 50 MG TABLET PO SCH (08:16)
[2018-03-27] MEDS: ASPIRIN 81MG TABLET PO SCH (08:16)
[2018-03-27] MEDS: PANTOPRAZOLE SODIUM 40 MG/VIAL IV SCH (08:16)
[2018-03-27] MEDS: ENOXAPARIN 40MG/0.4ML SYR SUBCUT SCH ×2 (08:17→21:42)
[2018-03-27] MEDS: BENAZEPRIL 10MG TABLET PO SCH ×2 (08:17→17:47)
[2018-03-27] MEDS: GEMFIBROZIL 600MG TABLET PO SCH ×2 (08:17→17:46)
[2018-03-27] MEDS: AMLODIPINE 5MG TABLET PO SCH ×2 (08:19→21:30)
[2018-03-27 10:59] LABS: BG BASE EXCESS 3.4 mmol/L (-2.0-2.0); BG CARBOXYHEMOGLOBIN 0.5 % (0.5-1.5); BG DEOXYHEMOGLOBIN 3.5 % (0.0-5.0); BG FRACTION INSPIRED OXYGEN 60; BG METHEMOGLOBIN 0.3 % (0.0-1.5); BG OXYHEMOGLOBIN 95.7 % (94.0-97.0); BG PCO2 65.1 mmHg (35.0-45.0); BG PO2 94.9 mmHg (75.0-100.0); BG PRESSURE SUPPORT 8; BG SAMPLE SITE RIGHT RADIAL; BG TOTAL HEMOGLOBIN 16.6 g/dL (12.0-18.0); BG VENT MODE VENT - CPAP
[2018-03-27] MEDS: DEXT 5% WATER 500 ML IV NR (12:29)
[2018-03-27] MEDS: ACETAMINOPHEN 650MG/20.3ML UDC NG PRN (21:43)
[2018-03-28] VITALS (40 sets, daily range): BP systolic 95–185; BP diastolic 37–109
[2018-03-28] MEDS: IPRATROPIUM/ALBUTEROL 0.5-3(2.5)MG/3ML NEB HHN SCH ×6 (00:48→20:28)
[2018-03-28] MEDS: DEXT 5% WATER 500 ML IV NR ×3 (02:20→17:45)
[2018-03-28 05:49] LABS: BASOPHILS % 0.1 % (0.0-2.0); EOSINOPHILS % 0.1 % (0.0-5.0); HEMATOCRIT. 49.2 % (42.0-52.0); HEMOGLOBIN. 16.1 g/dL (14.0-18.0); LYMPHOCYTES % 17.1 % (20.0-50.0); MEAN CORPUSCULAR HEMOGLOBIN 31.5 pg (28.0-32.0); MEAN CORPUSCULAR VOLUME 96.1 fL (80.0-94.0); MEAN PLATELET VOLUME 11.4 fl (7.4-10.4); MONOCYTES % 7.7 % (2.0-8.0); PLATELET 222 x1000/uL (130-400); RED BLOOD CELL COUNT 5.12 mill/uL (4.7-6.1); RED CELL DISTRIBUTION WIDTH 13.5 % (11.6-14.6)
[2018-03-28 05:56] LABS: CHLORIDE 107 mEq/L (98-107)
[2018-03-28] MEDS: METHYLPREDNISOLONE SOD SUCC 125 MG/2 ML VIAL IV SCH ×3 (06:45→21:25)
[2018-03-28] MEDS: BLOOD SUGAR DIAGNOSTIC STRIP TEST SCH ×4 (06:45→21:18)
[2018-03-28] MEDS: INSULIN LISPRO 100 UNITS/ML SUBCUT SCH ×4 (07:00→21:00)
[2018-03-28 08:17] LABS: BG BASE EXCESS 3.7 mmol/L (-2.0-2.0); BG BILEVEL POS AIRWAY PRESSURE 16/5; BG CARBOXYHEMOGLOBIN 1.1 % (0.5-1.5); BG DEOXYHEMOGLOBIN 3.6 % (0.0-5.0); BG FRACTION INSPIRED OXYGEN 60; BG HCO3 ACT 30.2 mmol/L (22.0-26.0); BG METHEMOGLOBIN 0.4 % (0.0-1.5); BG OXYGEN SATURATION 96.3 % (92.0-98.5); BG OXYHEMOGLOBIN 94.9 % (94.0-97.0); BG PCO2 52.3 mmHg (35.0-45.0); BG PO2 82.6 mmHg (75.0-100.0); BG SAMPLE SITE RIGHT RADIAL; BG TOTAL HEMOGLOBIN 16.6 g/dL (12.0-18.0); BG VENT MODE MASK - BIPAP; BG VENT RATE 20 set
[2018-03-28] MEDS: PANTOPRAZOLE SODIUM 40 MG/VIAL IV SCH (08:45)
[2018-03-28] MEDS: ASPIRIN 81MG TABLET PO SCH (08:45)
[2018-03-28] MEDS: GEMFIBROZIL 600MG TABLET PO SCH ×2 (08:45→17:19)
[2018-03-28] MEDS: ENOXAPARIN 40MG/0.4ML SYR SUBCUT SCH ×2 (08:46→21:25)
[2018-03-28] MEDS: AMLODIPINE 5MG TABLET PO SCH ×2 (08:48→21:26)
[2018-03-28] MEDS: BENAZEPRIL 10MG TABLET PO SCH ×2 (08:48→17:19)
[2018-03-28] MEDS: LOSARTAN POTASSIUM 50 MG TABLET PO SCH (08:52)
[2018-03-29] VITALS (11 sets, daily range): BP systolic 98–151; BP diastolic 52–93
[2018-03-29] MEDS: ACETAMINOPHEN 650MG/20.3ML UDC NG PRN ×2 (03:06→10:26)
[2018-03-29] MEDS: IPRATROPIUM/ALBUTEROL 0.5-3(2.5)MG/3ML NEB HHN SCH ×6 (03:09→21:45)
[2018-03-29] MEDS: METHYLPREDNISOLONE SOD SUCC 125 MG/2 ML VIAL IV SCH ×3 (06:06→21:30)
[2018-03-29 06:42] LABS: BASOPHILS % 0.1 % (0.0-2.0); EOSINOPHILS % 0.1 % (0.0-5.0); HEMATOCRIT. 48.3 % (42.0-52.0); HEMOGLOBIN. 15.7 g/dL (14.0-18.0); LYMPHOCYTES % 18.1 % (20.0-50.0); MEAN CORPUSCULAR VOLUME 95.5 fL (80.0-94.0); MEAN PLATELET VOLUME 10.9 fl (7.4-10.4); MONOCYTES % 12.6 % (2.0-8.0); NEUTROPHILS % 69.1 % (40.0-76.0); PLATELET 206 x1000/uL (130-400); RED BLOOD CELL COUNT 5.06 mill/uL (4.7-6.1); RED CELL DISTRIBUTION WIDTH 13.5 % (11.6-14.6)
[2018-03-29 07:19] LABS: CHLORIDE 108 mEq/L (98-107)
[2018-03-29] MEDS: BLOOD SUGAR DIAGNOSTIC STRIP TEST SCH ×4 (07:30→21:00)
[2018-03-29] MEDS: INSULIN LISPRO 100 UNITS/ML SUBCUT SCH ×3 (08:00→21:00)
[2018-03-29] MEDS: PANTOPRAZOLE SODIUM 40 MG/VIAL IV SCH (10:25)
[2018-03-29] MEDS: ENOXAPARIN 40MG/0.4ML SYR SUBCUT SCH ×2 (10:25→21:29)
[2018-03-29] MEDS: ASPIRIN 81MG TABLET PO SCH (10:25)
[2018-03-29] MEDS: GEMFIBROZIL 600MG TABLET PO SCH ×2 (10:26→16:41)
[2018-03-29] MEDS: BENAZEPRIL 10MG TABLET PO SCH ×2 (10:26→16:51)
[2018-03-29] MEDS: LOSARTAN POTASSIUM 50 MG TABLET PO SCH (10:26)
[2018-03-29] MEDS: AMLODIPINE 5MG TABLET PO SCH ×2 (10:26→21:00)
[2018-03-30] VITALS (13 sets, daily range): BP systolic 96–144; BP diastolic 51–108
[2018-03-30] MEDS: IPRATROPIUM/ALBUTEROL 0.5-3(2.5)MG/3ML NEB HHN SCH ×6 (00:49→20:05)
[2018-03-30 06:29] LABS: BASOPHILS % 0.1 % (0.0-2.0); EOSINOPHILS % 0.1 % (0.0-5.0); HEMATOCRIT. 46.9 % (42.0-52.0); HEMOGLOBIN. 15.1 g/dL (14.0-18.0); LYMPHOCYTES % 13.9 % (20.0-50.0); MEAN CORPUSCULAR HEMOGLOBIN 30.8 pg (28.0-32.0); MEAN CORPUSCULAR VOLUME 95.6 fL (80.0-94.0); MONOCYTES % 8.2 % (2.0-8.0); NEUTROPHILS % 77.7 % (40.0-76.0); PLATELET 200 x1000/uL (130-400); RED BLOOD CELL COUNT 4.91 mill/uL (4.7-6.1); RED CELL DISTRIBUTION WIDTH 13.7 % (11.6-14.6)
[2018-03-30 07:50] LABS: CHLORIDE 104 mEq/L (98-107)
[2018-03-30] MEDS: INSULIN LISPRO 100 UNITS/ML SUBCUT SCH ×4 (08:00→20:46)
[2018-03-30] MEDS: BLOOD SUGAR DIAGNOSTIC STRIP TEST SCH ×4 (08:22→20:45)
[2018-03-30] MEDS: PANTOPRAZOLE SODIUM 40 MG/VIAL IV SCH (09:03)
[2018-03-30] MEDS: ASPIRIN 81MG TABLET PO SCH (09:04)
[2018-03-30] MEDS: METHYLPREDNISOLONE SOD SUCC 125 MG/2 ML VIAL IV SCH (09:04)
[2018-03-30] MEDS: LOSARTAN POTASSIUM 50 MG TABLET PO SCH (09:05)
[2018-03-30] MEDS: ENOXAPARIN 40MG/0.4ML SYR SUBCUT SCH ×2 (09:05→20:45)
[2018-03-30] MEDS: AMLODIPINE 5MG TABLET PO SCH ×2 (09:05→20:45)
[2018-03-30] MEDS: GEMFIBROZIL 600MG TABLET PO SCH ×2 (09:06→17:17)
[2018-03-30] MEDS: BENAZEPRIL 10MG TABLET PO SCH ×2 (09:06→17:17)
[2018-03-31] VITALS (14 sets, daily range): BP systolic 106–138; BP diastolic 48–118
[2018-03-31] MEDS: IPRATROPIUM/ALBUTEROL 0.5-3(2.5)MG/3ML NEB HHN SCH ×7 (03:51→23:43)
[2018-03-31] MEDS: INSULIN LISPRO 100 UNITS/ML SUBCUT SCH ×4 (08:00→21:00)
[2018-03-31] MEDS: BLOOD SUGAR DIAGNOSTIC STRIP TEST SCH ×4 (08:04→21:58)
[2018-03-31] MEDS: BENAZEPRIL 10MG TABLET PO SCH ×2 (09:27→16:34)
[2018-03-31] MEDS: ENOXAPARIN 40MG/0.4ML SYR SUBCUT SCH ×2 (09:27→21:56)
[2018-03-31] MEDS: GEMFIBROZIL 600MG TABLET PO SCH ×2 (09:27→16:34)
[2018-03-31] MEDS: AMLODIPINE 5MG TABLET PO SCH ×2 (09:27→21:57)
[2018-03-31] MEDS: LOSARTAN POTASSIUM 50 MG TABLET PO SCH (09:27)
[2018-03-31] MEDS: ASPIRIN 81MG TABLET PO SCH (09:27)
[2018-03-31] MEDS: METHYLPREDNISOLONE SOD SUCC 125 MG/2 ML VIAL IV SCH (09:32)
[2018-03-31] MEDS: PANTOPRAZOLE SODIUM 40 MG/VIAL IV SCH (09:39)
[2018-03-31 10:40] LABS: BASOPHILS % 0.2 % (0.0-2.0); EOSINOPHILS % 1.9 % (0.0-5.0); HEMATOCRIT. 44.7 % (42.0-52.0); HEMOGLOBIN. 14.5 g/dL (14.0-18.0); LYMPHOCYTES % 36.5 % (20.0-50.0); MEAN CORPUSCULAR VOLUME 95.3 fL (80.0-94.0); MEAN PLATELET VOLUME 10.5 fl (7.4-10.4); NEUTROPHILS % 51.4 % (40.0-76.0); PLATELET 209 x1000/uL (130-400); RED BLOOD CELL COUNT 4.69 mill/uL (4.7-6.1); RED CELL DISTRIBUTION WIDTH 13.6 % (11.6-14.6)
[2018-04-01] VITALS (13 sets, daily range): BP systolic 93–134; BP diastolic 46–77
[2018-04-01] MEDS: IPRATROPIUM/ALBUTEROL 0.5-3(2.5)MG/3ML NEB HHN SCH ×4 (04:08→15:49)
[2018-04-01] MEDS: BLOOD SUGAR DIAGNOSTIC STRIP TEST SCH ×3 (07:49→17:19)
[2018-04-01] MEDS: INSULIN LISPRO 100 UNITS/ML SUBCUT SCH ×3 (07:55→17:19)
[2018-04-01] MEDS: ASPIRIN 81MG TABLET PO SCH (08:21)
[2018-04-01] MEDS: PANTOPRAZOLE SODIUM 40 MG/VIAL IV SCH (08:21)
[2018-04-01] MEDS: LOSARTAN POTASSIUM 50 MG TABLET PO SCH (08:21)
[2018-04-01] MEDS: ENOXAPARIN 40MG/0.4ML SYR SUBCUT SCH (08:21)
[2018-04-01] MEDS: METHYLPREDNISOLONE SOD SUCC 125 MG/2 ML VIAL IV SCH (08:21)
[2018-04-01] MEDS: GEMFIBROZIL 600MG TABLET PO SCH ×2 (08:21→17:19)
[2018-04-01] MEDS: AMLODIPINE 5MG TABLET PO SCH (08:22)
[2018-04-01] MEDS: BENAZEPRIL 10MG TABLET PO SCH ×2 (08:22→17:19)
[2018-04-01 09:18] LABS: BG BASE EXCESS 0.1 mmol/L (-2.0-2.0); BG DEOXYHEMOGLOBIN 13.8 % (0.0-5.0); BG FRACTION INSPIRED OXYGEN 21; BG METHEMOGLOBIN 0.2 % (0.0-1.5); BG PCO2 46.7 mmHg (35.0-45.0); BG PH 7.364 (7.350-7.450); BG PO2 53.2 mmHg (75.0-100.0); BG SAMPLE SITE LEFT RADIAL; BG TOTAL HEMOGLOBIN 15.5 g/dL (12.0-18.0); BG VENT MODE ROOM AIR
== END 2018-04-01 20:40 | disposition home or self-care (01) | DRG 207 ==
LOC: ER 17:04 → 6WST 20:32 → ENRESERV 20:50 → EDBEDREQ 21:03 → EDBEDREQTM 21:03 → MICUSO 03-16 17:18 → 5EST 03-28 23:45
PROVIDERS: ADMIT Internal Medicine; ATTEND Internal Medicine
PROC: 5A1955Z Respiratory Ventilation, Greater than 96 Consecutive Hours (ICD-10-PCS; principal; 2018-03-16)
PROC: 0BH17EZ Insertion of Endotracheal Airway into Trachea, Via Natural or Artificial Opening (ICD-10-PCS; 2018-03-16)
PROC: 5A09357 Assistance with Respiratory Ventilation, Less than 24 Consecutive Hours, Continuous Positive Airway Pressure (ICD-10-PCS; 2018-03-16)
PROC: 05H533Z Insertion of Infusion Device into Right Subclavian Vein, Percutaneous Approach (ICD-10-PCS; 2018-03-17)
PROC: B546ZZA Ultrasonography of Right Subclavian Vein, Guidance (ICD-10-PCS; 2018-03-17)
PROC: 0BH17EZ Insertion of Endotracheal Airway into Trachea, Via Natural or Artificial Opening (ICD-10-PCS; 2018-03-23)
PROC: 5A09457 Assistance with Respiratory Ventilation, 24-96 Consecutive Hours, Continuous Positive Airway Pressure (ICD-10-PCS; 2018-03-27)
DX: J96.22 Acute and chronic respiratory failure with hypercapnia (principal); J18.9 Pneumonia, unspecified organism; N17.9 Acute kidney failure, unspecified; E87.2 Acidosis; I11.0 Hypertensive heart disease with heart failure; E66.2 Morbid (severe) obesity with alveolar hypoventilation; J45.901 Unspecified asthma with (acute) exacerbation; I50.9 Heart failure, unspecified; J44.0 Chronic obstructive pulmonary disease with (acute) lower respiratory infection; J44.1 Chronic obstructive pulmonary disease with (acute) exacerbation; J93.82 Other air leak; Z99.11 Dependence on respirator [ventilator] status; Z68.43 Body mass index [BMI] 50.0-59.9, adult; J96.21 Acute and chronic respiratory failure with hypoxia; J20.9 Acute bronchitis, unspecified; E11.9 Type 2 diabetes mellitus without complications; E78.5 Hyperlipidemia, unspecified; E78.00 Pure hypercholesterolemia, unspecified; F31.9 Bipolar disorder, unspecified; H40.9 Unspecified glaucoma; M17.0 Bilateral primary osteoarthritis of knee; R13.10 Dysphagia, unspecified; Z82.49 Family history of ischemic heart disease and other diseases of the circulatory system; Z98.84 Bariatric surgery status; Z88.8 Allergy status to other drugs, medicaments and biological substances; Z79.84 Long term (current) use of oral hypoglycemic drugs; Z79.899 Other long term (current) drug therapy; Z83.3 Family history of diabetes mellitus
CPT/HCPCS: 31500; 36415; 36569; 36600; 71045; 73560; 76770; 76937; 78580; 80048; 80053; 80061; 80305; 81003; 82375; 82550; 82553; 82805; 82962; 83036; 83690; 83735; 83880; 84145; 84443; 84478; 84484; 85007; 85025; 85027; 85610; 85730; 87040; 87070; 87086; 90732; 92523; 92610; 93005; 93306; 93970; 94002; 94003; 94640; 94660; 97110; 97116; 97162; 97164; 97165; 97168; 97530; 99285; A4216; A6261; C1725; C9113; J0330; J0461; J1200; J1265; J1630; J1650; J1815; J1956; J2060; J2250; J2270; J2405; J2704; J2930; J3490; J7030; J7040; J7050; J7060; J7070; J7512; J7608; J7620; A4315

== ENCOUNTER 2019-09-12 18:58 | Inpatient (IN) | payer MEDICARE, MEDICAID ==
[~2019-09-12] VITALS: Ht 180.3 cm; Wt 170.1 kg
[~2019-09-12 18:58] MED LIST changes: -ACET-3161 PO; -BENA10TA3 PO; -D-ME473S8 PO; +FLUT16SP15 NS; -GEMF600T3 PO; +GEMF600T5 PO; -HYDR25TA PO; +METF-414 PO; -METF500T4 PO; -PROAIR HFA INH; -TRIA15OI8 TP
[2019-09-12] MEDS ORDERED: FUROSEMIDE 40MG/4ML VIAL IV ONE (21:30)
[2019-09-12] MEDS ORDERED: ASPIRIN 81MG TABLET PO ONE (21:30)
[2019-09-12] MEDS ORDERED: NITROGLYCERIN OINT 1GM/INCH UDPKT TD ONE (21:30)
[2019-09-12 21:42] LABS: CLARITY URINE CLEAR (CLEAR); COLOR URINE YELLOW (YELLOW); KETONES URINE NEGATIVE (NEGATIVE); LEUKOCYTE ESTERASE URINE NEGATIVE (NEGATIVE); NITRITE URINE NEGATIVE (NEGATIVE); OCCULT BLOOD URINE TRACE (NEGATIVE); PROTEIN URINE 2+ (NEGATIVE); SPECIFIC GRAVITY URINE 1.013 (1.005-1.030); UROBILINOGEN URINE 0.2 E.U./dL (0.2-1.0)
[2019-09-12 21:46] LABS: BASOPHILS % 0.6 % (0.0-2.0); EOSINOPHILS % 7.3 % (0.0-5.0); HEMATOCRIT. 43.6 % (42.0-52.0); HEMOGLOBIN. 14.1 g/dL (14.0-18.0); LYMPHOCYTES % 28.8 % (20.0-50.0); MEAN CORPUSCULAR VOLUME 93.1 fL (80.0-94.0); MONOCYTES % 8.8 % (2.0-8.0); NEUTROPHILS % 54.5 % (40.0-76.0); PLATELET 206 x1000/uL (130-400); RED BLOOD CELL COUNT 4.68 mill/uL (4.7-6.1); RED CELL DISTRIBUTION WIDTH 14.5 % (11.6-14.6)
[2019-09-12 21:48] LABS: CHLORIDE 103 mEq/L (98-107)
[2019-09-12 21:51] LABS: PARTIAL THROMBOPLASTIN TIME 35.2 sec (23.4-31.0); PROTHROMBIN TIME 10.6 sec (9.6-11.0)
[2019-09-12] MEDS ORDERED: CEFTRIAXONE 1 G PREMIX 50 ML IV ONE (23:00)
[2019-09-12] MEDS ORDERED: AZITHROMYCIN 500 MG TABLET PO ONE (23:00)
[2019-09-13] VITALS (7 sets, daily range): BP systolic 90–140; BP diastolic 49–89
[2019-09-13] MEDS ORDERED: ACET250T3 MT (04:31)
[2019-09-13] MEDS ORDERED: HYDR25TA MT (04:31)
[2019-09-13] MEDS ORDERED: LOSA50TA41 MT (04:31)
[2019-09-13] MEDS ORDERED: CHOL100044 MT (04:31)
[2019-09-13] MEDS ORDERED: AMLO5TAB88 MT (04:31)
[2019-09-13] MEDS ORDERED: DEXTROSE 50% WATER 50ML SYRINGE IV PRN (05:15)
[2019-09-13] MEDS ORDERED: NON FORMULARY PATIENT HOME MED XX SCH ×3 (05:15)
[2019-09-13] MEDS ORDERED: IPRATROPIUM/ALBUTEROL 0.5-3(2.5)MG/3ML NEB HHN PRN ×2 (05:15→16:00)
[2019-09-13] MEDS ORDERED: AZITHROMYCIN 500 MG in DEXT 5% WATER 250 ML IV SCH (06:00)
[2019-09-13] MEDS: BLOOD SUGAR DIAGNOSTIC STRIP TEST SCH ×4 (06:23→21:12)
[2019-09-13] MEDS: INSULIN LISPRO 100 UNITS/ML SUBCUT SCH ×4 (06:23→21:00)
[2019-09-13] MEDS ORDERED: ACETAMINOPHEN 325MG TABLET PO PRN (07:00)
[2019-09-13] MEDS: IBUPROFEN 600MG TABLET PO PRN (07:03)
[2019-09-13 09:58] LABS: BASOPHILS % 0.5 % (0.0-2.0); EOSINOPHILS % 6.1 % (0.0-5.0); HEMATOCRIT. 41.6 % (42.0-52.0); HEMOGLOBIN. 13.7 g/dL (14.0-18.0); LYMPHOCYTES % 30.7 % (20.0-50.0); MEAN CORPUSCULAR HEMOGLOBIN 30.3 pg (28.0-32.0); MEAN PLATELET VOLUME 9.7 fl (7.4-10.4); MONOCYTES % 10.2 % (2.0-8.0); NEUTROPHILS % 52.5 % (40.0-76.0); PLATELET 213 x1000/uL (130-400); RED BLOOD CELL COUNT 4.52 mill/uL (4.7-6.1); RED CELL DISTRIBUTION WIDTH 14.4 % (11.6-14.6)
[2019-09-13 10:03] LABS: CHLORIDE 102 mEq/L (98-107)
[2019-09-13 10:12] LABS: CREATINE KINASE 109 IU/L (39-308)
[2019-09-13] MEDS: CHOLECALCIFEROL (D3) 1000 UNIT TABLET PO SCH (10:19)
[2019-09-13 10:20] LABS: CREATINE KINASE MB FRACTION < 1.0 ng/mL (0.5-3.6)
[2019-09-13] MEDS: LORATADINE 10MG TABLET PO SCH (10:20)
[2019-09-13] MEDS: HYDROCHLOROTHIAZIDE 25MG TABLET PO SCH (10:20)
[2019-09-13] MEDS: LOSARTAN POTASSIUM 50 MG TABLET PO SCH (10:20)
[2019-09-13] MEDS: METFORMIN HCL 500MG TABLET PO SCH ×2 (10:20→16:53)
[2019-09-13] MEDS: GEMFIBROZIL 600MG TABLET PO SCH ×2 (10:21→16:53)
[2019-09-13] MEDS: ENOXAPARIN 40MG/0.4ML SYR SUBCUT SCH ×2 (10:21→20:59)
[2019-09-13] MEDS: AMLODIPINE 5MG TABLET PO SCH ×2 (10:32→20:59)
[2019-09-13] MEDS: CEFTRIAXONE 1,000 MG in DEXTROSE 5% WATER 50 ML IV SCH (11:46)
[2019-09-13 14:10] LABS: BG BASE EXCESS 2.3 mmol/L (-2.0-2.0); BG CARBOXYHEMOGLOBIN 1.5 % (0.5-1.5); BG DEOXYHEMOGLOBIN 15.8 % (0.0-5.0); BG FRACTION INSPIRED OXYGEN 21; BG HCO3 ACT 29.9 mmol/L (22.0-26.0); BG METHEMOGLOBIN 0.4 % (0.0-1.5); BG OXYGEN SATURATION 83.9 % (92.0-98.5); BG OXYHEMOGLOBIN 82.3 % (94.0-97.0); BG PCO2 59.3 mmHg (35.0-45.0); BG PH 7.321 (7.350-7.450); BG PO2 51.3 mmHg (75.0-100.0); BG SAMPLE SITE RIGHT RADIAL; BG TOTAL HEMOGLOBIN 14.6 g/dL (12.0-18.0); BG VENT MODE ROOM AIR
[2019-09-13 15:09] LABS: *BARBITURATES SCREEN URINE NEGATIVE (NEGATIVE); CANNABINOID URINE SCREEN NEGATIVE (NEGATIVE); PHENCYCLIDINE URINE SCREEN NEGATIVE (NEGATIVE)
[2019-09-13 15:10] LABS: *AMPHETAMINES SCREEN URINE NEGATIVE (NEGATIVE); *BENZODIAZEPINES SCREEN URINE NEGATIVE (NEGATIVE); *COCAINE SCREEN URINE NEGATIVE (NEGATIVE); METHADONE URINE SCREEN NEGATIVE (NEGATIVE); OPIATES URINE SCREEN NEGATIVE (NEGATIVE)
[2019-09-13] MEDS: ACETAZOLAMIDE 250MG TABLET PO SCH ×2 (15:12→20:59)
[2019-09-13] MEDS: MONTELUKAST SODIUM 10MG TABLET PO SCH (16:54)
[2019-09-13 17:07] LABS: LDL CHOLESTEROL 152 mg/dL (5-100)
[2019-09-13 17:08] LABS: CREATINE KINASE 101 IU/L (39-308); HDL CHOLESTEROL 40 mg/dL (40-59)
[2019-09-13 17:10] LABS: CREATINE KINASE MB FRACTION < 1.0 ng/mL (0.5-3.6)
[2019-09-13 18:56] LABS: HEPATITIS A AB IGM NEGATIVE (NEGATIVE)
[2019-09-13 19:46] LABS: HEPATITIS B SURFACE ANTIGEN REACTIVE PEND CONFIR
[2019-09-13] MEDS: BUDESONIDE 0.5MG/2ML NEB HHN SCH (21:21)
[2019-09-13] MEDS: IPRATROPIUM/ALBUTEROL 0.5-3(2.5)MG/3ML NEB HHN SCH (21:22)
[2019-09-13] MEDS: AZITHROMYCIN 250 MG TABLET PO SCH (23:41)
[2019-09-14] MEDS: IPRATROPIUM/ALBUTEROL 0.5-3(2.5)MG/3ML NEB HHN SCH ×4 (03:01→20:25)
[2019-09-14 04:15] VITALS: BP 118/77
[2019-09-14] MEDS: INSULIN LISPRO 100 UNITS/ML SUBCUT SCH ×4 (07:15→20:49)
[2019-09-14 08:00] VITALS: BP 108/57
[2019-09-14] MEDS: BUDESONIDE 0.5MG/2ML NEB HHN SCH ×2 (08:32→20:25)
[2019-09-14] MEDS: LOSARTAN POTASSIUM 50 MG TABLET PO SCH (09:00)
[2019-09-14] MEDS: AMLODIPINE 5MG TABLET PO SCH ×2 (09:00→20:50)
[2019-09-14] MEDS: HYDROCHLOROTHIAZIDE 25MG TABLET PO SCH (09:00)
[2019-09-14] MEDS: CEFTRIAXONE 1,000 MG in DEXTROSE 5% WATER 50 ML IV SCH (09:02)
[2019-09-14] MEDS: ENOXAPARIN 40MG/0.4ML SYR SUBCUT SCH ×2 (09:03→20:50)
[2019-09-14] MEDS: ACETAZOLAMIDE 250MG TABLET PO SCH ×2 (09:03→20:51)
[2019-09-14] MEDS: GEMFIBROZIL 600MG TABLET PO SCH ×2 (09:03→16:48)
[2019-09-14] MEDS: LORATADINE 10MG TABLET PO SCH (09:03)
[2019-09-14] MEDS: CHOLECALCIFEROL (D3) 1000 UNIT TABLET PO SCH (09:03)
[2019-09-14] MEDS: METFORMIN HCL 500MG TABLET PO SCH ×2 (09:03→16:48)
[2019-09-14] MEDS: BLOOD SUGAR DIAGNOSTIC STRIP TEST SCH ×3 (11:45→20:49)
[2019-09-14 12:00] VITALS: BP 119/68
[2019-09-14] MEDS: IBUPROFEN 600MG TABLET PO PRN (13:39)
[2019-09-14] MEDS: PREDNISONE 20MG TABLET PO SCH (15:18)
[2019-09-14 16:00] VITALS: BP 127/65
[2019-09-14] MEDS: MONTELUKAST SODIUM 10MG TABLET PO SCH (16:48)
[2019-09-14 20:00] VITALS: BP 123/70
[2019-09-14] MEDS: AZITHROMYCIN 250 MG TABLET PO SCH (23:18)
[2019-09-15] VITALS: BP 123/54
[2019-09-15] MEDS: IPRATROPIUM/ALBUTEROL 0.5-3(2.5)MG/3ML NEB HHN SCH ×4 (00:39→19:53)
[2019-09-15 04:00] VITALS: BP 114/68
[2019-09-15 04:07] LABS: CHLAMYDIA TRACHOMATIS NAA Negative (Negative); NEISSERIA GONORRHOEAE NAA Negative (Negative)
[2019-09-15] MEDS: INSULIN LISPRO 100 UNITS/ML SUBCUT SCH ×4 (06:01→20:47)
[2019-09-15] MEDS: BLOOD SUGAR DIAGNOSTIC STRIP TEST SCH ×4 (06:01→20:47)
[2019-09-15 07:23] LABS: BASOPHILS % 0.2 % (0.0-2.0); EOSINOPHILS % 0.3 % (0.0-5.0); HEMATOCRIT. 43.3 % (42.0-52.0); HEMOGLOBIN. 13.9 g/dL (14.0-18.0); LYMPHOCYTES % 18.6 % (20.0-50.0); MEAN CORPUSCULAR VOLUME 93.9 fL (80.0-94.0); MEAN PLATELET VOLUME 10.4 fl (7.4-10.4); MONOCYTES % 8.4 % (2.0-8.0); NEUTROPHILS % 72.5 % (40.0-76.0); PLATELET 220 x1000/uL (130-400); RED BLOOD CELL COUNT 4.62 mill/uL (4.7-6.1); RED CELL DISTRIBUTION WIDTH 14.3 % (11.6-14.6)
[2019-09-15 08:00] VITALS: BP 123/81
[2019-09-15] MEDS: CEFTRIAXONE 1,000 MG in DEXTROSE 5% WATER 50 ML IV SCH (08:54)
[2019-09-15] MEDS: CHOLECALCIFEROL (D3) 1000 UNIT TABLET PO SCH (08:55)
[2019-09-15] MEDS: AMLODIPINE 5MG TABLET PO SCH ×2 (08:55→22:00)
[2019-09-15] MEDS: PREDNISONE 20MG TABLET PO SCH (08:55)
[2019-09-15] MEDS: METFORMIN HCL 500MG TABLET PO SCH (08:55)
[2019-09-15] MEDS: LOSARTAN POTASSIUM 50 MG TABLET PO SCH (08:55)
[2019-09-15] MEDS: LORATADINE 10MG TABLET PO SCH (08:55)
[2019-09-15] MEDS: GEMFIBROZIL 600MG TABLET PO SCH ×2 (08:55→16:58)
[2019-09-15] MEDS: ENOXAPARIN 40MG/0.4ML SYR SUBCUT SCH ×2 (08:56→22:00)
[2019-09-15] MEDS: ACETAZOLAMIDE 250MG TABLET PO SCH (08:56)
[2019-09-15] MEDS: BUDESONIDE 0.5MG/2ML NEB HHN SCH ×2 (09:57→19:53)
[2019-09-15] MEDS: DOCUSATE SODIUM 100MG CAPSULE PO SCH ×2 (10:13→16:58)
[2019-09-15 12:00] VITALS: BP 125/78
[2019-09-15 16:00] VITALS: BP 115/78
[2019-09-15] MEDS: MONTELUKAST SODIUM 10MG TABLET PO SCH (16:58)
[2019-09-15 20:00] VITALS: BP 145/87
[2019-09-15] MEDS: AZITHROMYCIN 250 MG TABLET PO SCH (22:07)
[2019-09-16] VITALS: BP 91/54
[2019-09-16] MEDS: IPRATROPIUM/ALBUTEROL 0.5-3(2.5)MG/3ML NEB HHN SCH ×4 (01:40→21:25)
[2019-09-16 04:01] VITALS: BP 95/54
[2019-09-16 05:11] LABS: HBSAG CONFIRMATION Positive (.); HBSAG SCREEN Confirm. indicated (Negative)
[2019-09-16] MEDS: BLOOD SUGAR DIAGNOSTIC STRIP TEST SCH ×4 (06:49→20:46)
[2019-09-16] MEDS: INSULIN LISPRO 100 UNITS/ML SUBCUT SCH ×4 (07:15→20:46)
[2019-09-16 07:51] LABS: BASOPHILS % 0.5 % (0.0-2.0); EOSINOPHILS % 1.6 % (0.0-5.0); HEMATOCRIT. 43.2 % (42.0-52.0); HEMOGLOBIN. 13.8 g/dL (14.0-18.0); LYMPHOCYTES % 29.1 % (20.0-50.0); MEAN CORPUSCULAR HEMOGLOBIN 29.9 pg (28.0-32.0); MEAN CORPUSCULAR VOLUME 93.4 fL (80.0-94.0); MEAN PLATELET VOLUME 11.2 fl (7.4-10.4); MONOCYTES % 9.2 % (2.0-8.0); NEUTROPHILS % 59.6 % (40.0-76.0); PLATELET 203 x1000/uL (130-400); RED BLOOD CELL COUNT 4.63 mill/uL (4.7-6.1); RED CELL DISTRIBUTION WIDTH 14.7 % (11.6-14.6)
[2019-09-16 08:00] VITALS: BP 146/84
[2019-09-16] MEDS: BUDESONIDE 0.5MG/2ML NEB HHN SCH (08:59)
[2019-09-16] MEDS: CEFTRIAXONE 1,000 MG in DEXTROSE 5% WATER 50 ML IV SCH (09:01)
[2019-09-16] MEDS: ENOXAPARIN 40MG/0.4ML SYR SUBCUT SCH ×2 (09:01→21:14)
[2019-09-16] MEDS: PREDNISONE 20MG TABLET PO SCH (09:01)
[2019-09-16] MEDS: AMLODIPINE 5MG TABLET PO SCH ×2 (09:02→21:15)
[2019-09-16] MEDS: LORATADINE 10MG TABLET PO SCH (09:02)
[2019-09-16] MEDS: GEMFIBROZIL 600MG TABLET PO SCH ×2 (09:02→17:25)
[2019-09-16] MEDS: DOCUSATE SODIUM 100MG CAPSULE PO SCH ×2 (09:02→17:23)
[2019-09-16] MEDS: CHOLECALCIFEROL (D3) 1000 UNIT TABLET PO SCH (09:02)
[2019-09-16] MEDS: LOSARTAN POTASSIUM 50 MG TABLET PO SCH (09:02)
[2019-09-16] MEDS ORDERED: P20 PO (12:10)
[2019-09-16] MEDS ORDERED: IPRA3AMP9 NEB (12:10)
[2019-09-16] MEDS ORDERED: AZIT250T12 PO (12:10)
[2019-09-16] MEDS ORDERED: ATOR20TA65 MT (12:13)
[2019-09-16 12:40] VITALS: BP 120/67
[2019-09-16 16:00] VITALS: BP 124/77
[2019-09-16] MEDS: MONTELUKAST SODIUM 10MG TABLET PO SCH (17:23)
[2019-09-16 20:00] VITALS: BP 121/70
[2019-09-16] MEDS: AZITHROMYCIN 250 MG TABLET PO SCH (23:20)
[2019-09-17] VITALS: BP 110/68
[2019-09-17] MEDS: IPRATROPIUM/ALBUTEROL 0.5-3(2.5)MG/3ML NEB HHN SCH ×3 (02:26→13:43)
[2019-09-17 04:00] VITALS: BP 102/72
[2019-09-17 06:21] LABS: BASOPHILS % 0.6 % (0.0-2.0); EOSINOPHILS % 1.4 % (0.0-5.0); HEMATOCRIT. 40.5 % (42.0-52.0); HEMOGLOBIN. 12.9 g/dL (14.0-18.0); LYMPHOCYTES % 32.1 % (20.0-50.0); MEAN CORPUSCULAR HEMOGLOBIN 30.2 pg (28.0-32.0); MEAN CORPUSCULAR VOLUME 94.5 fL (80.0-94.0); MEAN PLATELET VOLUME 10.5 fl (7.4-10.4); MONOCYTES % 10.9 % (2.0-8.0); PLATELET 188 x1000/uL (130-400); RED BLOOD CELL COUNT 4.29 mill/uL (4.7-6.1); RED CELL DISTRIBUTION WIDTH 14.1 % (11.6-14.6)
[2019-09-17] MEDS: INSULIN LISPRO 100 UNITS/ML SUBCUT SCH ×2 (06:33→12:13)
[2019-09-17] MEDS: BLOOD SUGAR DIAGNOSTIC STRIP TEST SCH ×2 (06:33→12:13)
[2019-09-17 06:58] LABS: CHLORIDE 109 mEq/L (98-107)
[2019-09-17 07:13] LABS: PHOSPHORUS 3.1 mg/dL (2.5-4.9)
[2019-09-17 08:00] VITALS: BP 127/83
[2019-09-17] MEDS: ENOXAPARIN 40MG/0.4ML SYR SUBCUT SCH (09:01)
[2019-09-17] MEDS: PREDNISONE 20MG TABLET PO SCH (09:01)
[2019-09-17] MEDS: DOCUSATE SODIUM 100MG CAPSULE PO SCH (09:01)
[2019-09-17] MEDS: CEFTRIAXONE 1,000 MG in DEXTROSE 5% WATER 50 ML IV SCH (09:01)
[2019-09-17] MEDS: GEMFIBROZIL 600MG TABLET PO SCH (09:01)
[2019-09-17] MEDS: LOSARTAN POTASSIUM 50 MG TABLET PO SCH (09:02)
[2019-09-17] MEDS: AMLODIPINE 5MG TABLET PO SCH (09:02)
[2019-09-17] MEDS: CHOLECALCIFEROL (D3) 1000 UNIT TABLET PO SCH (09:02)
[2019-09-17] MEDS: LORATADINE 10MG TABLET PO SCH (09:02)
[2019-09-17 12:00] VITALS: BP 120/69
[2019-09-17 14:51] VITALS: BP 120/67
== END 2019-09-17 13:15 | disposition home or self-care (01) | DRG 189 ==
LOC: ER 18:58 → 5WST 23:23 → ENRESERV 09-13 03:03
PROVIDERS: ADMIT Internal Medicine; ATTEND Internal Medicine
DX: J96.02 Acute respiratory failure with hypercapnia (principal); N17.9 Acute kidney failure, unspecified; E66.2 Morbid (severe) obesity with alveolar hypoventilation; I13.0 Hypertensive heart and chronic kidney disease with heart failure and stage 1 through stage 4 chronic kidney disease, or unspecified chronic kidney disease; J44.1 Chronic obstructive pulmonary disease with (acute) exacerbation; J45.901 Unspecified asthma with (acute) exacerbation; E87.2 Acidosis; Z68.43 Body mass index [BMI] 50.0-59.9, adult; J96.01 Acute respiratory failure with hypoxia; E11.22 Type 2 diabetes mellitus with diabetic chronic kidney disease; E78.5 Hyperlipidemia, unspecified; I50.9 Heart failure, unspecified; N18.9 Chronic kidney disease, unspecified; D72.1 Eosinophilia; E78.00 Pure hypercholesterolemia, unspecified; N18.2 Chronic kidney disease, stage 2 (mild); Z77.22 Contact with and (suspected) exposure to environmental tobacco smoke (acute) (chronic); Z82.49 Family history of ischemic heart disease and other diseases of the circulatory system; Z83.3 Family history of diabetes mellitus; Z86.74 Personal history of sudden cardiac arrest; Z98.84 Bariatric surgery status; Z79.899 Other long term (current) drug therapy; Z86.19 Personal history of other infectious and parasitic diseases
CPT/HCPCS: 36415; 36600; 71045; 76770; 80048; 80061; 80305; 81003; 82375; 82550; 82553; 82805; 82962; 83735; 83880; 84100; 84153; 84484; 85379; 86705; 86709; 86803; 87340; 87491; 87591; 93005; 93306; 93970; 94640; 94660; 99285; J0456; J0696; J1650; J1940; J7040; J7060; J7512; J7620; J7626; G0103

== ENCOUNTER 2019-12-15 22:21 | Emergency (ER) | payer MEDICARE, MEDICAID ==
[~2019-12-15] VITALS: Ht 180.3 cm; Wt 165.0 kg
[~2019-12-15 22:21] MED LIST changes: +ATOR20TA65 MT; +AZIT250T12 PO; +CHOL100044 MT; -GEMF600T5 PO; +HYDR25TA MT; +IPRA3AMP9 NEB; -METF-414 PO; +P20 PO
[2019-12-16 00:28] LABS: CLARITY URINE CLEAR (CLEAR); COLOR URINE YELLOW (YELLOW); KETONES URINE TRACE (NEGATIVE); LEUKOCYTE ESTERASE URINE 1+ (NEGATIVE); NITRITE URINE NEGATIVE (NEGATIVE); OCCULT BLOOD URINE NEGATIVE (NEGATIVE); PROTEIN URINE 2+ (NEGATIVE); SPECIFIC GRAVITY URINE 1.024 (1.005-1.030)
[2019-12-16 02:50] VITALS: BP 123/68
== END 2019-12-16 02:51 | disposition home or self-care (01) ==
LOC: ER 22:21
DX: R30.0 Dysuria (principal); E11.9 Type 2 diabetes mellitus without complications; Z88.8 Allergy status to other drugs, medicaments and biological substances; Z86.19 Personal history of other infectious and parasitic diseases
CPT/HCPCS: 81003; 99283

== ENCOUNTER 2020-07-14 08:10 | Emergency (ER) | payer MEDICARE, MEDICAID ==
[~2020-07-14] VITALS: Ht 180.3 cm; Wt 160.0 kg
[2020-07-14 09:03] LABS: COLOR URINE YELLOW (YELLOW); KETONES URINE NEGATIVE (NEGATIVE); LEUKOCYTE ESTERASE URINE 2+ (NEGATIVE); NITRITE URINE NEGATIVE (NEGATIVE); OCCULT BLOOD URINE 3+ (NEGATIVE); PROTEIN URINE 1+ (NEGATIVE); SPECIFIC GRAVITY URINE 1.009 (1.005-1.030); UROBILINOGEN URINE 0.2 E.U./dL (0.2-1.0)
[2020-07-14 09:05] LABS: CLARITY URINE HAZY (CLEAR)
[2020-07-14] MEDS ORDERED: SODIUM CHLORIDE 0.9% 1,000 ML IV ONE (12:31)
[2020-07-14 13:31] LABS: BASOPHILS % 0.3 % (0.0-2.0); EOSINOPHILS % 0.9 % (0.0-5.0); HEMATOCRIT. 32.7 % (42.0-52.0); HEMOGLOBIN. 10.7 g/dL (14.0-18.0); LYMPHOCYTES % 8.5 % (20.0-50.0); MEAN CORPUSCULAR HEMOGLOBIN 29.7 pg (28.0-32.0); MEAN PLATELET VOLUME 10.1 fl (7.4-10.4); MONOCYTES % 8.4 % (2.0-8.0); NEUTROPHILS % 81.9 % (40.0-76.0); PLATELET 276 x1000/uL (130-400); RED CELL DISTRIBUTION WIDTH 13.4 % (11.6-14.6)
[2020-07-14 13:42] LABS: INR 1.1; PROTHROMBIN TIME 11.4 sec (9.6-11.0)
[2020-07-14 13:52] LABS: CHLORIDE 102 mEq/L (98-107)
[2020-07-14 15:10] VITALS: BP 127/81
== END 2020-07-14 15:25 | disposition home or self-care (01) ==
LOC: ER 08:10 → ENRESERV 16:04 → CANBEDREQ 16:16
DX: N45.1 Epididymitis (principal); N39.0 Urinary tract infection, site not specified; I10 Essential (primary) hypertension; E11.9 Type 2 diabetes mellitus without complications; Z98.890 Other specified postprocedural states; Z79.899 Other long term (current) drug therapy; Z88.8 Allergy status to other drugs, medicaments and biological substances; Z87.19 Personal history of other diseases of the digestive system
CPT/HCPCS: 36415; 74176; 76870; 80053; 81003; 83690; 85025; 85610; 87077; 87086; 87186; 93005; 93976; 96360; 99285; J7030

== ENCOUNTER 2020-07-14 22:56 | Emergency (ER) | payer MEDICARE, MEDICAID ==
[~2020-07-14] VITALS: Ht 180.3 cm; Wt 155.0 kg
[2020-07-15] VITALS: BP 150/81
[2020-07-15 02:51] LABS: CLARITY URINE CLOUDY (CLEAR); COLOR URINE YELLOW (YELLOW); KETONES URINE NEGATIVE (NEGATIVE); LEUKOCYTE ESTERASE URINE 2+ (NEGATIVE); NITRITE URINE POSITIVE (NEGATIVE); OCCULT BLOOD URINE TRACE (NEGATIVE); PH URINE 5.5 (4.5-8.0); PROTEIN URINE 2+ (NEGATIVE); SPECIFIC GRAVITY URINE 1.016 (1.005-1.030); UROBILINOGEN URINE 0.2 E.U./dL (0.2-1.0)
== END 2020-07-15 00:07 | disposition home or self-care (01) ==
LOC: ER 22:56
DX: N43.3 Hydrocele, unspecified (principal); N45.1 Epididymitis; N39.0 Urinary tract infection, site not specified; I10 Essential (primary) hypertension; E11.9 Type 2 diabetes mellitus without complications; J45.909 Unspecified asthma, uncomplicated; Z88.8 Allergy status to other drugs, medicaments and biological substances
CPT/HCPCS: 81003; 87077; 87186; 99283

== ENCOUNTER 2024-10-09 13:59 | Inpatient (IN) | payer MEDICARE, MEDICAID ==
[~2024-10-09] VITALS: Ht 182.9 cm; Wt 113.4 kg
[2024-10-09 18:23] LABS: BASOPHILS % 0.5 % (0.0-2.0); EOSINOPHILS % 2.2 % (0.0-5.0); HEMATOCRIT. 32.7 % (42.0-52.0); HEMOGLOBIN. 10.6 g/dL (14.0-18.0); LYMPHOCYTES % 24.9 % (20.0-50.0); MEAN CORPUSCULAR HEMOGLOBIN 29.5 pg (28.0-32.0); MEAN CORPUSCULAR HGB CONC 32.3 g/dL (31.0-37.0); MEAN CORPUSCULAR VOLUME 91.3 fL (80.0-94.0); MONOCYTES % 9.5 % (2.0-8.0); NEUTROPHILS % 62.9 % (40.0-76.0); PLATELET 272 x1000/uL (130-400); RED BLOOD CELL COUNT 3.58 mill/uL (4.7-6.1); RED CELL DISTRIBUTION WIDTH 14.4 % (11.6-14.6); WHITE BLOOD COUNT 9.4 x1000/uL (4.5-11.0)
[2024-10-09 18:31] LABS: CHLORIDE 107 mEq/L (98-107); POTASSIUM 3.8 mEq/L (3.5-5.1); SODIUM 142 mEq/L (136-145)
[2024-10-09 18:32] LABS: CARBON DIOXIDE 27 mEq/L (21-32)
[2024-10-09 18:33] LABS: CALCIUM 9.5 mg/dL (8.7-10.4)
[2024-10-09 18:37] LABS: CREATININE 2.1 mg/dL (0.6-1.3); GLUCOSE 88 mg/dL (70-105); TROPONIN I HIGH SENSITIVITY 13 ng/L (3.0-53); UREA NITROGEN BLOOD 31 mg/dL (9-23)
[2024-10-09 18:39] LABS: ALANINE AMINOTRANSFERASE 11 IU/L (10-49); ALBUMIN 4.2 g/dL (3.2-4.8); ASPARTATE AMINOTRANSFERASE 18 IU/L (<34)
[2024-10-09 18:40] LABS: BILIRUBIN TOTAL 0.2 mg/dL (0.1-1.0); PROTEIN TOTAL 7.6 g/dL (6.0-8.3)
[2024-10-09 18:46] LABS: PARTIAL THROMBOPLASTIN TIME 32.5 sec (23.4-31.0); PROTHROMBIN TIME 11.2 sec (9.6-11.0)
[2024-10-09 18:58] LABS: BILIRUBIN DIRECT < 0.1 mg/dL (<=3.0)
[2024-10-09] MEDS: ACETAMINOPHEN 325MG TABLET PO ONE (20:55)
[2024-10-09] MEDS: FUROSEMIDE 40MG/4ML VIAL IV ONE (20:55)
[2024-10-09] MEDS: ASPIRIN 81MG TABLET PO ONE (22:27)
[2024-10-10] VITALS (8 sets, daily range): BP systolic 127–151; BP diastolic 7–100; PULSE 49–103; RESP 16–20; TEMP 36.22512–37.33632; O2SAT 93–100
[2024-10-10] MEDS ORDERED: DEXTROSE 50% WATER 50ML SYRINGE IV PRN (02:30)
[2024-10-10] MEDS ORDERED: IBUPROFEN 600MG TABLET PO PRN (02:45)
[2024-10-10 05:32] LABS: CHLORIDE 107 mEq/L (98-107); POTASSIUM 3.8 mEq/L (3.5-5.1); SODIUM 144 mEq/L (136-145)
[2024-10-10 05:33] LABS: CALCIUM 10.1 mg/dL (8.7-10.4); CARBON DIOXIDE 30 mEq/L (21-32)
[2024-10-10 05:37] LABS: CREATININE 2.1 mg/dL (0.6-1.3)
[2024-10-10 05:38] LABS: GLUCOSE 77 mg/dL (70-105); UREA NITROGEN BLOOD 31 mg/dL (9-23)
[2024-10-10 05:40] LABS: ALANINE AMINOTRANSFERASE 12 IU/L (10-49); ALBUMIN 4.7 g/dL (3.2-4.8); ASPARTATE AMINOTRANSFERASE 20 IU/L (<34); BILIRUBIN TOTAL 0.4 mg/dL (0.1-1.0); PROTEIN TOTAL 8.2 g/dL (6.0-8.3)
[2024-10-10 06:41] LABS: HEMOGLOBIN 11.2 g/dL (14.0-18.0); MEAN CORPUSCULAR HEMOGLOBIN 29.4 pg (28.0-32.0); MEAN CORPUSCULAR HGB CONC 32.1 g/dL (31.0-37.0); MEAN CORPUSCULAR VOLUME 91.6 fL (80.0-94.0); PLATELET 295 x1000/uL (130-400); RED BLOOD CELL COUNT 3.82 mill/uL (4.7-6.1); RED CELL DISTRIBUTION WIDTH 14.3 % (11.6-14.6); WHITE BLOOD COUNT 8.5 x1000/uL (4.5-11.0)
[2024-10-10] MEDS: BLOOD SUGAR DIAGNOSTIC STRIP TEST SCH (07:04)
[2024-10-10] MEDS: INSULIN LISPRO 100 UNITS/ML SUBCUT SCH (07:15)
[2024-10-10] MEDS: FLUTICASONE PROPIONATE 50MCG/SPRAY BOTTLE BOTHNSTRLS SCH (09:00)
[2024-10-10] MEDS: HYDROCHLOROTHIAZIDE 25MG TABLET PO SCH (09:43)
[2024-10-10] MEDS: LORATADINE 10MG TABLET PO SCH (09:43)
[2024-10-10] MEDS: IPRATROPIUM/ALBUTEROL 0.5-3(2.5)MG/3ML NEB NEB SCH (13:15)
[2024-10-10] MEDS: CHOLECALCIFEROL (D3) 1000 UNIT TABLET PO SCH (13:29)
[2024-10-10] MEDS: FUROSEMIDE 40MG/4ML VIAL IVP SCH (15:01)
[2024-10-10] MEDS ORDERED: PNEUMOCOCCAL 20-VAL CONJ-DIP CRM 0.5ML IM ONE (16:30)
[2024-10-10] MEDS: ENOXAPARIN 100MG/ML SYR SUBCUT SCH (18:09)
[2024-10-11] VITALS (7 sets, daily range): BP systolic 113–144; BP diastolic 76–86; PULSE 74–105; RESP 16–18; TEMP 35.94732–37.00296; O2SAT 95–98
[2024-10-11] MEDS: INFLUENZA VACCINE 05/PF 0.5 ML SYRINGE IM ONE (01:01)
[2024-10-11] MEDS ORDERED: APIX5TAB MT (12:21)
[2024-10-11] MEDS ORDERED: CEPH500C2 MT (12:21)
[2024-10-11] MEDS ORDERED: FURO-151 MT (12:21)
[2024-10-11] MEDS: CEFTRIAXONE 1GM/50ML 50 ML IV SCH (14:12)
== END 2024-10-11 17:10 | disposition home health service (06) | DRG 291 ==
LOC: ER 14:18 → 5WST 20:53 → EDBEDREQ 20:55 → EDBEDREQTM 20:55 → 7EST 10-10 11:52
PROVIDERS: ADMIT Internal Medicine; ATTEND Internal Medicine
DX: I13.0 Hypertensive heart and chronic kidney disease with heart failure and stage 1 through stage 4 chronic kidney disease, or unspecified chronic kidney disease (principal); I50.33 Acute on chronic diastolic (congestive) heart failure; L03.115 Cellulitis of right lower limb; I48.92 Unspecified atrial flutter; N17.9 Acute kidney failure, unspecified; J44.9 Chronic obstructive pulmonary disease, unspecified; N18.9 Chronic kidney disease, unspecified; E66.9 Obesity, unspecified; E11.22 Type 2 diabetes mellitus with diabetic chronic kidney disease; E78.5 Hyperlipidemia, unspecified; Z68.33 Body mass index [BMI] 33.0-33.9, adult
CPT/HCPCS: 36415; 71045; 73610; 80048; 80053; 80076; 82962; 83036; 83880; 84484; 84550; 85025; 85027; 86705; 90686; 93005; 93306; 93970; 94640; 99285; J0696; J1650; J1940

== ENCOUNTER 2024-12-10 17:18 | Emergency (ER) | payer MEDICARE, MEDICAID ==
[~2024-12-10] VITALS: Ht 180.3 cm; Wt 155.0 kg
[~2024-12-10 17:18] MED LIST changes: +APIX5TAB MT; -ATOR20TA65 MT; -AZIT250T12 PO; +CEPH500C2 MT; +FURO-151 MT; -P20 PO
[2024-12-10 17:21] VITALS: O2SAT 97
[2024-12-10 17:27] VITALS: TEMP 98.5; O2SAT 98
[2024-12-10 19:05] VITALS: BP 157/95; PULSE 73; RESP 18
[2024-12-10] MEDS: HYDROCODONE/ACETAMINOPHEN 5/325MG TABLET PO ONE (19:05)
[2024-12-10] MEDS: IBUPROFEN 400MG TABLET PO ONE (19:05)
== END 2024-12-10 19:19 | disposition home or self-care (01) ==
LOC: ER 17:18
DX: S63.266A Dislocation of metacarpophalangeal joint of right little finger, initial encounter (principal); I10 Essential (primary) hypertension; J45.909 Unspecified asthma, uncomplicated; E11.9 Type 2 diabetes mellitus without complications; E66.9 Obesity, unspecified; Z98.890 Other specified postprocedural states; Z79.899 Other long term (current) drug therapy; W19.XXXA Unspecified fall, initial encounter; Y93.89 Activity, other specified; Y92.89 Other specified places as the place of occurrence of the external cause; Y99.8 Other external cause status
CPT/HCPCS: 26700; 73120; 73130; 99152; 99285